=== PATIENT | female | born 1980 | race Caucasian/White ===

== ENCOUNTER 2018-02-21 20:13 | Inpatient (IN) | payer MEDICAID, OTHER ==
[2018-02-21] MEDS ORDERED: Lactated Ringers 1,000 ML IV ONE (20:43)
--- NOTE | 2018-02-21 21:04 | EDM.PDOC ---
<Marie Hickman - Last Filed: 02/21/18 23:20> ED HPI GENERAL MEDICAL PROBLEM - General Chief Complaint: Abdominal Pain Stated Complaint: PAST RNY PATIENT Time Seen by Provider: 02/21/18 20:24 Source of Information: Reports: Patient History Limitations: Reports: No Limitations - History of Present Illness INITIAL COMMENTS - FREE TEXT/NARRATIVE: Pt had sudden onset of abdominal pain today. Patient had pain after eating her lunch at approx 12:00. The pt then had an Emisis of her lunch at approx 230. Pt states had a bowel movement about 5pm but does not have any feeling or urge to have a bowel movement. Pt states pain and nausea continued. The pain was not the same but similar to previous bowel obstructions. 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 Denies: Shortness of Breath Cardiovascular: Reports: No Symptoms. Denies: Chest Pain Endocrine: Reports: No Symptoms GI/Abdominal: Reports: Abdominal Pain, Nausea, Vomiting : Reports: No Symptoms Musculoskeletal: Reports: No Symptoms Skin: Reports: No Symptoms Neurological: Reports: No Symptoms Psychiatric: Reports: No Symptoms Hematologic/Lymphatic: Reports: No Symptoms Immunologic: Reports: No Symptoms ED EXAM, GENERAL - Physical Exam Exam: See Below Free Text/Narrative:: 38 y/o female presents with sudden onset of abd pain. Pt abd soft yet tender to touch greater over the upper right quadrant. Bowel sounds absent to minimal. Abdomen is not distended some guarding with palpation. LBM 5pm today. Last meal at noon today just prior to symptoms. Pt denies being . Exam Limited By: No Limitations General Appearance: Alert, WD/WN, Anxious Respiratory/Chest: No Respiratory Distress, Lungs Clear, Normal Breath Sounds, No Accessory Muscle Use. No: Decreased Breath Sounds, Crackles, Rales Cardiovascular: Normal Peripheral Pulses, Regular Rate, Rhythm, No Edema, No Gallop, No Murmur GI/Abdominal: Soft, Guarding, Other (absent bowel sounds). No: Non-Tender, No Organomegaly, No Distention Back Exam: Normal Inspection, Full Range of Motion Extremities: Normal Inspection, Normal Range of Motion Neurological: Alert, Oriented, Normal Cognition Psychiatric: Normal Affect, Normal Mood Skin Exam: Warm, Intact Lymphatic: No Adenopathy Course - Vital Signs Text/Narrative:: Pt received fluids in route as well as IV zofran and Fentanyl for nausea and pain. Currently obtaining labs CBC, CMP Creatinine Mg, CT ABD/Pelvis with iv contrast. Additional 1 Ltr bolus to be given over 1 hour Plan/Assessment Abd pain - CT does not show obstruction - ventral hernia in upper abdomen on CT - possible gallstones Consult Surgery -Discussion with Dr. Benoit regarding findings -Admit to hospitalist with Dr. Benoit to follow in am -Obtain US of gallbladder in am Consult Hospitalist -Admit as inpatient 2SS Last Recorded V/S: Last Vital Signs Temp 36.9 C 02/21/18 20:21 Pulse 75 02/21/18 20:21 Resp 16 02/21/18 20:21 BP 156/94 H 02/21/18 20:21 Pulse Ox 99 02/21/18 20:21 - Orders/Labs/Meds Orders: Active Orders 24 hr Category Date Time Status Patient Status [ADT] Routine ADT 02/22/18 00:16 Active Ambulate [RC] QID Care 02/22/18 00:16 Active Communication Order [RC] STAT Care 02/22/18 00:16 Active Intake and Output [RC] QSHIFT Care 02/22/18 00:16 Active Notify Provider Vital Signs [RC] ASDIRECTED Care 02/22/18 00:16 Active Notify Provider [RC] PRN Care 02/22/18 00:16 Active Oxygen Therapy [RC] PRN Care 02/22/18 00:16 Active 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 [RC] PER UNIT ROUTINE Care 02/22/18 00:16 Active Pulse Oximetry [RC] CONTINUOUS Care 02/22/18 00:16 Active RT Aerosol Therapy [RC] ASDIRECTED Care 02/22/18 00:16 Active Up ad [place] [RC] ASDIRECTED Care 02/22/18 00:16 Active VTE/DVT Education [RC] Per Unit Routine Care 02/22/18 00:16 Active Vital Signs [RC] Q4H Care 02/22/18 00:16 Active Nothing per Oral After Midnight Diet [DIET] Diet 02/22/18 Breakfast Active Abdomen Comp [US] Timed Exams 02/22/18 07:00 Ordered Abdomen Pelvis w Cont [CT] Stat Exams 02/21/18 20:48 Taken BASIC METABOLIC PANEL,BMP [CHEM] AM Lab 02/22/18 05:11 Ordered CBC WITH AUTO DIFF [HEME] AM Lab 02/22/18 05:11 Ordered HCG QUALITATIVE,URINE [URCHEM] Urgent Lab 02/22/18 00:16 Ordered Albuterol [Proventil Neb Soln] Med 02/22/18 00:16 Active 2.5 mg NEB Q4H PRN Bisacodyl [Dulcolax] Med 02/22/18 00:16 Active 5 mg PO DAILY PRN Docusate Sodium [Colace] Med 02/22/18 00:16 Active 100 mg PO BID PRN LORazepam [Ativan] Med 02/22/18 00:16 Active 1 mg IV Q6H PRN Lactated Ringers [Ringers, Lactated] 1,000 ml Med 02/22/18 00:16 Active IV ASDIRECTED Naloxone [Narcan] Med 02/22/18 00:16 Active 0.4 mg IVPUSH Q2M PRN Ondansetron [Zofran ODT] Med 02/22/18 00:16 Active 4 mg PO Q6H PRN Ondansetron [Zofran] Med 02/22/18 00:16 Active 4 mg IV Q4H PRN Pantoprazole [ProTONIX IV] Med 02/22/18 09:00 Active 40 mg IV DAILY fentaNYL/Normal Saline [fentaNYL in NS 20 MCG/ML 30 ML Med 02/22/18 00:16 Active 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[employer] 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] See Protocol IV ASDIRECTED PRN Medication Discontinuation Instructions [OM.PC] Stat Oth 02/22/18 00:16 Ordered Resuscitation Status Routine Resus Stat 02/21/18 23:17 Ordered Medication Orders Albuterol (Proventil Neb Soln) 2.5 mg NEB Q4H PRN PRN Reason: Shortness Of Breath/wheezing Bisacodyl (Dulcolax) 5 mg PO DAILY PRN PRN Reason: Constipation Docusate Sodium (Colace) 100 mg PO BID PRN PRN Reason: Constipation Fentanyl Citrate (Fentanyl In Ns 20 Mcg/Ml 30 Ml Electrode [employer]) 0 mcg IV ASDIRECTED PRN; Protocol PRN Reason: Pain Last Admin: 02/22/18 00:51 Dose: 600 mcg Lactated Ringer's (Ringers, Lactated) 1,000 mls @ 125 mls/hr IV ASDIRECTED [facility] Last Admin: 02/22/18 00:51 Dose: 125 mls/hr Lorazepam (Ativan) 1 mg IV Q6H PRN PRN Reason: Nausea/Vomiting Naloxone HCl (Narcan) 0.4 mg IVPUSH Q2M PRN PRN Reason: Respiratory Distress Ondansetron HCl (Zofran Odt) 4 mg PO Q6H PRN PRN Reason: Nausea able to take PO Ondansetron HCl (Zofran) 4 mg IV Q4H PRN PRN Reason: Nausea/Vomiting Last Admin: 02/22/18 00:50 Dose: 4 mg Pantoprazole Sodium (Protonix Iv) 40 mg IV DAILY [facility] Labs: Laboratory Tests 02/21/18 02/21/18 Range/Units 20:41 20:41 WBC 8.4 (4.5-11.0) K/uL RBC 3.97 (3.30-5.50) M/uL Hgb 11.7 L (12.0-15.0) g/dL Hct 35.5 L (36.0-48.0) % MCV 89 (80-98) fL MCH 30 (27-31) pg MCHC 33 (32-36) % Plt Count 350 (150-400) K/uL Neut % (Auto) 84 H (36-66) % Lymph % (Auto) 8 L (24-44) % [place] % (Auto) 8 H (2-6) % Eos % (Auto) 0 L (2-4) % Baso % (Auto) 1 (0-1) % Sodium 139 L (140-148) mmol/L Potassium 3.6 (3.6-5.2) mmol/L Chloride 105 (100-108) mmol/L Carbon Dioxide 23 (21-32) mmol/L Anion Gap 14.6 H (5.0-14.0) mmol/L BUN 9 (7-18) mg/dL Creatinine 0.7 (0.6-1.0) mg/dL Est Cr Clr Drug Dosing 107.77 mL/min Estimated GFR (MDRD) > 60 (>60) Glucose 114 H (74-106) mg/dL Calcium 8.8 (8.5-10.1) mg/dL Magnesium 1.6 L (1.8-2.4) mg/dL Total Bilirubin 0.6 (0.2-1.0) mg/dL AST 35 (15-37) U/L ALT 27 (12-78) U/L Alkaline Phosphatase 78 (46-116) U/L Creatine Kinase 128 (26-192) U/L Total Protein 7.3 (6.4-8.2) g/dL Albumin 3.2 L (3.4-5.0) g/dL Globulin 4.1 H (2.3-3.5) g/dL Albumin/Globulin Ratio 0.8 L (1.2-2.2) Meds: Medications Generic Name Dose Route Start Last Admin Trade Name Freq PRN Reason Stop Dose Admin Albuterol 2.5 mg 02/22/18 00:16 Proventil Neb Soln NEB Q4H PRN Shortness Of Breath/wheezing Bisacodyl 5 mg 02/22/18 00:16 Dulcolax PO DAILY PRN Constipation Docusate Sodium 100 mg 02/22/18 00:16 Colace PO BID PRN Constipation Fentanyl Citrate 0 mcg 02/22/18 00:16 02/22/18 00:51 Fentanyl In Ns 20 Mcg/Ml 30 Ml Electrode [employer] IV 600 mcg ASDIRECTED PRN Administration Pain Protocol Lactated Ringer's 1,000 mls @ 125 mls/hr 02/22/18 00:16 02/22/18 00:51 Ringers, Lactated IV 125 mls/hr ASDIRECTED [place] Administration Lorazepam 1 mg 02/22/18 00:16 Ativan IV Q6H PRN Nausea/Vomiting Naloxone HCl 0.4 mg 02/22/18 00:16 Narcan IVPUSH Q2M PRN Respiratory Distress Ondansetron HCl 4 mg 02/22/18 00:16 Zofran Odt PO Q6H PRN Nausea able to take PO Ondansetron HCl 4 mg 02/22/18 00:16 02/22/18 00:50 Zofran IV 4 mg Q4H PRN Administration Nausea/Vomiting Pantoprazole Sodium 40 mg 02/22/18 09:00 Protonix Iv IV DAILY [facility] Discontinued Medications Generic Name Dose Route Start Last Admin Trade Name Freq PRN Reason Stop Dose Admin Hydromorphone HCl 1 mg 02/21/18 21:19 02/21/18 21:25 Dilaudid IVPUSH 02/21/18 21:20 1 mg ONETIME ONE Administration Lactated Ringer's 1,000 mls @ 1,000 mls/hr 02/21/18 20:43 02/21/18 20:57 Ringers, Lactated IV 02/21/18 21:42 1,000 mls/hr BOLUS ONE Administration Sodium Chloride 80 mls @ 3 mls/sec 02/21/18 21:15 02/21/18 21:36 Normal Saline IV 3 mls/sec ASDIRECTED [place] Administration Iopamidol 140 ml 02/21/18 21:15 02/21/18 21:36 Isovue-300 (61%) IV 140 ml . DIRECTED [facility] Administration Sodium Chloride 10 ml 02/21/18 21:05 02/21/18 21:36 Saline Flush FLUSH 10 ml ASDIRECTED PRN Administration Keep Vein Open Departure - Departure Time of Disposition: 11:00 Disposition: Admitted As Inpatient 64 Condition: Fair Clinical Impression: Abdominal pain Qualifiers: Abdominal location: generalized Qualified Code(s): R10.84 - Generalized abdominal pain - Discharge Information Referrals: Mikhail Benoit MD [Primary Care Provider] - Natalie Bey NP [Nurse Practitioner] - Forms: ED Department Discharge Care Plan Goals: admit to Hospitalist services with general surgery to see in am <Arash Newsome - Last Filed: 02/22/18 01:09> Course - Re-Assessments/Exams Free Text/Narrative Re-Assessment/Exam: 02/22/18 01:07 patient seen by myself on arrival History of small bowel obstruction, last was 8 years ago, has had at least 2 abdominal procedures for obstruction. Initial gastric bypass done in 2001. onset of symptoms at 1 p.m. at work, didn't stay most of her shift and went home , had one episode of vomiting at work which helped improve her symptoms. In the evening the pain was like a bear so she finally was going to come into the hospital. She felt too sick to have her drive so EMS was called, she had some bilious emesis en route treated with ondansetron 4 mg twice in her abdominal pain was treated with fentanyl 50 g 3 times and then 25 mg for a total of 175 g with improvement Examination shows a soft abdomen nondistended but decreased bowel sounds mild tenderness in the epigastric area abdominal pain without acute abdomen Labs ordered Reviewed by student CTof the abdomen was negative for blockage Transferred to admission with Dr. Benoit
[2018-02-21] MEDS ORDERED: Sodium Chloride 0.9% 10 ML Syringe FLUSH PRN (21:05)
[2018-02-21] MEDS ORDERED: Iopamidol 612 MG/ML 150 ML Bottle IV SCH (21:15)
[2018-02-21] MEDS ORDERED: Sodium Chloride 0.9% 80 ML IV SCH (21:15)
[2018-02-21] MEDS ORDERED: HYDROmorphone 1 MG/ML Syringe IVPUSH ONE (21:19)
--- NOTE | 2018-02-21 23:39 | PCM.HP ---
H&P History of Present Illness - General Date of Service: 02/21/18 Admit Problem/Dx: Admission Diagnosis/Problem Admission Diagnosis/Problem Abdominal pain Source of Information: Patient, Family () History Limitations: Reports: No Limitations - History of Present Illness Initial Comments - Free Text/Narative: Abdominal pain; this is a 38 year old female present to ER via Ambulance. She reports today ate at noon, then had intense pain at 1 pm, followed by vomiting. She continued to have cyclic waves of abdominal pain that radiates to spine and upper back. abdominal pain mostly in upper right quadrant. Past Surgeries; gastric bypass RNY 2000. hx of 6 abdominal surgeries for hernia repair, sbo, last surgery 2009. Onset of Symptoms: Reports: Sudden Symptom Onset Date: 02/21/18 Symptom Onset Time: 13:00 Duration of Symptoms: Reports: Hour(s):, Waxing/Waning Location: Reports: Abdomen, Radiates to (spine and upper back) Quality: Reports: Sharp, Stabbing Severity: Severe Improves with: Reports: None Worsens with: Reports: None Associated Symptoms: Reports: Loss of Appetite, Nausea/Vomiting Middle Abdomen Pain Score (Numeric/FACES): 2 - Related Data Allergies/Adverse Reactions: Allergies Allergy/AdvReac Type Severity Reaction Status Date / Time No Known Allergies Allergy Verified 02/21/18 20:46 Home Medications: Home Meds NK [No Known Home Meds] 02/21/18 [History] Past Medical History Gastrointestinal History: Reports: Bowel Obstruction 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: - Infectious Disease History Infectious Disease History: Reports: Chicken Pox - Past Surgical History GI Surgical History: Reports: Bariatric Procedure, Hernia Repair/Other, Small Bowel Social & Family History - Tobacco Use Smoking Status *Q: Current Every Day Smoker Years of Tobacco use: 24 Packs/Tins Daily: 0.5 - Caffeine Use Caffeine Use: Reports: Coffee - Recreational Drug Use Recreational Drug Use: No - Living Situation & Occupation Living situation: Reports: , with Family Occupation: Employed (lives with family in [facility]) H&P Review of Systems - Review of Systems: Review Of Systems: See Below General: Reports: No Symptoms, Other (pain controlled with IV narcotics) HEENT: Reports: No Symptoms Pulmonary: Reports: No Symptoms Cardiovascular: Reports: No Symptoms Gastrointestinal: Reports: Abdominal Pain, Nausea, Vomiting Genitourinary: Reports: No Symptoms Musculoskeletal: Reports: Back Pain Skin: Reports: No Symptoms Psychiatric: Reports: No Symptoms Neurological: Reports: No Symptoms Hematologic/Lymphatic: Reports: No Symptoms Immunologic: Reports: No Symptoms Exam - Exam Exam: See Below - Vital Signs Vital Signs: Last Vital Signs Temp 36.9 C 02/21/18 20:21 Pulse 75 02/21/18 20:21 Resp 16 02/21/18 20:21 BP 156/94 H 02/21/18 20:21 Pulse Ox 99 02/21/18 20:21 Weight: 93.416 kg - Exam General: Alert, Oriented, Cooperative, Sedated HEENT: PERRLA, Conjunctiva Clear, EACs Clear, EOMI, Hearing Intact, Mucosa Moist & [place], Nares Patent, Normal Nasal Septum, Posterior Pharynx Clear, Pupils Equal, Pupils Reactive, TMs Clear Neck: Supple, Trachea Midline Lungs: Clear to Auscultation, Normal Respiratory Effort Cardiovascular: Regular Rate, Regular Rhythm, Normal S1, Normal S2 GI/Abdominal Exam: Soft, Distended, Tender (generalized), Abnormal Bowel Sounds (hypoactive bowel sounds) (Female) Exam: Deferred Rectal (Female) Exam: Deferred Back Exam: Normal Inspection, Full Range of Motion Extremities: Normal Inspection, Normal Range of Motion, Non-Tender, No Pedal Edema, Normal Capillary Refill Skin: Warm, Dry, Intact Neurological: Reflexes Equal Bilateral, Strength Equal Bilateral Neuro Extensive - Mental Status: Alert, Oriented x3, Normal Mood/Affect, Normal Cognition, Memory Intact Neuro Extensive - Motor, Sensory, Reflexes: CN II-XII Intact Psychiatric: Alert, Normal Affect, Normal Mood - Patient Data Lab Results Last 24 hrs: Laboratory Results - last 24 hr 02/21/18 02/21/18 Range/Units 20:41 20:41 WBC 8.4 (4.5-11.0) K/uL RBC 3.97 (3.30-5.50) M/uL Hgb 11.7 L (12.0-15.0) g/dL Hct 35.5 L (36.0-48.0) % MCV 89 (80-98) fL MCH 30 (27-31) pg MCHC 33 (32-36) % Plt Count 350 (150-400) K/uL Neut % (Auto) 84 H (36-66) % Lymph % (Auto) 8 L (24-44) % [place] % (Auto) 8 H (2-6) % Eos % (Auto) 0 L (2-4) % Baso % (Auto) 1 (0-1) % Sodium 139 L (140-148) mmol/L Potassium 3.6 (3.6-5.2) mmol/L Chloride 105 (100-108) mmol/L Carbon Dioxide 23 (21-32) mmol/L Anion Gap 14.6 H (5.0-14.0) mmol/L BUN 9 (7-18) mg/dL Creatinine 0.7 (0.6-1.0) mg/dL Est Cr Clr Drug Dosing 107.77 mL/min Estimated GFR (MDRD) > 60 (>60) Glucose 114 H (74-106) mg/dL Calcium 8.8 (8.5-10.1) mg/dL Magnesium 1.6 L (1.8-2.4) mg/dL Total Bilirubin 0.6 (0.2-1.0) mg/dL AST 35 (15-37) U/L ALT 27 (12-78) U/L Alkaline Phosphatase 78 (46-116) U/L Creatine Kinase 128 (26-192) U/L Total Protein 7.3 (6.4-8.2) g/dL Albumin 3.2 L (3.4-5.0) g/dL Globulin 4.1 H (2.3-3.5) g/dL Albumin/Globulin Ratio 0.8 L (1.2-2.2) Result Diagrams: 02/21/18 20:41 02/21/18 20:41 - Problem List (1) Gallstones SNOMED Code(s): 812833130 ICD Code: K80.20 - CALCULUS OF GALLBLADDER W/O CHOLECYSTITIS W/O OBSTRUCTION Status: Acute Priority: High Current Visit: Yes (2) Abdominal pain SNOMED Code(s): 80007335 ICD Code: R10.9 - UNSPECIFIED ABDOMINAL PAIN Status: Acute Priority: High Current Visit: Yes Qualifiers: Abdominal location: generalized Qualified Code(s): R10.84 - Generalized abdominal pain Problem List Initiated/Reviewed/Updated: Yes Orders Last 24hrs: Active Orders 24 hr Category Date Time Status Patient Status Manage Transfer [TRANSFER] Routine ADT 02/21/18 23:15 Active Abdomen Pelvis w Cont [CT] Stat Exams 02/21/18 20:48 Taken Iopamidol [Isovue-300 (61%)] Med 02/21/18 21:15 Active 140 ml IV . DIRECTED Sodium Chloride 0.9% [Normal Saline] 80 ml Med 02/21/18 21:15 Active IV ASDIRECTED Sodium Chloride 0.9% [Saline Flush] Med 02/21/18 21:05 Active 10 ml FLUSH ASDIRECTED PRN Resuscitation Status Routine Resus Stat 02/21/18 23:17 Ordered Medication Orders Sodium Chloride (Normal Saline) 80 mls @ 3 mls/sec IV ASDIRECTED [facility] Last Admin: 02/21/18 21:36 Dose: 3 mls/sec Iopamidol (Isovue-300 (61%)) 140 ml IV . DIRECTED [facility] Last Admin: 02/21/18 21:36 Dose: 140 ml Sodium Chloride (Saline Flush) 10 ml FLUSH ASDIRECTED PRN PRN Reason: Keep Vein Open Last Admin: 02/21/18 21:36 Dose: 10 ml Assessment/Plan Comment:: ASSESSMENT AND PLAN Abdominal pain; this is a 38 year old female present to ER via Ambulance. She reports today ate at noon, then had intense pain at 1 pm, followed by vomiting. She continued to have cyclic waves of abdominal pain that radiates to spine and upper back. abdominal pain mostly in upper right quadrant. Past Surgeries; gastric bypass RNY 2000. hx of 6 abdominal surgeries for hernia repair, sbo, last surgery 2009. ABDOMINAL PAIN-associated with nausea and vomiting. CT scan of the abdomen obtained today shows lungs clear, liver, spleen, pancreas, adrenal glands and kidneys are within normal. Gallstones. no biliary dilation. gastric bypass changes. mild small bowel dilation to the level of the jejunostomy. mildly fluid -filled distal small bowel . no specific findings for small bowel obstruction. there is a ventral hernia in the upper abdomen containing a segment of transverse colon without evidence for obstruction. trace amount of fluid within the pelvis, 2 cm left ovarian cyst. no worrisome bone lesion. Impression: gastric bypass. mildly fluid-filled dilated proximal small bowel is likely postoperative. no specific findings for bowel obstructions. Ventral hernia containing transverse colon, without evidence for obstruction. 2 cm left ovarian cysts. trace free fluid in the the pelvis.. 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 -abdominal ultrasound in a.m. -Consult Dr. Benoit, he will see in am MAINTENANCE ISSUES -DVT prophylaxis; ambulation -GI prophylaxis; Protonix 40 mg IV daily -Nunes catheter; not indicated -Nutrition; clear liquids until 0400, then keep NPO for Surgical Consult -Nicotine dependence; declines nicotine patch CODE STATUS-FULL CODE ADMISSION STATUS-patient will be admitted to inpatient status, expect at least a 2 night hospital stay for evaluation and management of problems as outlined above. At the time of this admission I do not reasonably expected evaluation and management of this problem will require more than a 96 hour hospital stay. DISPOSITION-anticipate discharge to home after the hospital stay. PRIMARY CARE PROVIDER-Dr. Mikhail Benoit Hospitalist- Attending Surgeon - Dr. Mikhail Benoit
[2018-02-22] MEDS ORDERED: Naloxone 0.4 MG/ML SDV IVPUSH PRN (00:16)
[2018-02-22] MEDS ORDERED: Bisacodyl 5 MG Tab PO PRN (00:16)
[2018-02-22] MEDS ORDERED: Albuterol 0.083% 2.5 MG/3 ML Neb Soln NEB PRN (00:16)
[2018-02-22] MEDS ORDERED: Docusate Sodium 100 MG Cap PO PRN (00:16)
[2018-02-22] MEDS ORDERED: Ondansetron 4 MG Tab.DIS PO PRN (00:16)
[2018-02-22] MEDS: Ondansetron 4 MG/2 ML SDV IV PRN ×2 (00:50→05:43)
[2018-02-22] MEDS: Lactated Ringers 1,000 ML IV SCH ×2 (00:51→08:42)
[2018-02-22] MEDS: fentaNYL/Normal Saline 600 MCG/30 ML PCA Vial IV PRN ×3 (00:51→19:00)
[2018-02-22] MEDS ORDERED: LORazepam 2 MG/ML SDV ONE (01:38)
[2018-02-22] MEDS: LORazepam 2 MG/ML SDV IV PRN ×2 (01:41→08:09)
[2018-02-22] MEDS ORDERED: Ondansetron 4 MG/2 ML SDV ONE ×2 (05:36→09:25)
[2018-02-22] MEDS ORDERED: fentaNYL 250 MCG/5 ML SDV ONE ×3 (07:24→14:46)
[2018-02-22] MEDS ORDERED: Non-Formulary Medication 1 Each SCH (08:00)
[2018-02-22] MEDS ORDERED: Ketamine 500 MG/5 ML MDV IV SCH (08:00)
[2018-02-22] MEDS: Potassium Chloride 20 MEQ in Premix Bag 1 BAG IV SCH ×2 (08:44→10:49)
[2018-02-22] MEDS ORDERED: Propofol 200 MG/20 ML SDV ONE (09:25)
[2018-02-22] MEDS ORDERED: Succinylcholine 200 MG/10 ML MDV ONE (09:25)
[2018-02-22] MEDS ORDERED: Dexamethasone 4 MG/ML SDV ONE (09:25)
[2018-02-22] MEDS ORDERED: Glycopyrrolate 0.2 MG/ML 5 ML MDV ONE (09:25)
[2018-02-22] MEDS ORDERED: Neostigmine Methylsulfate 1 MG/ML 5 ML Syringe ONE (09:25)
[2018-02-22] MEDS ORDERED: Rocuronium 50 MG/5 ML Vial ONE ×2 (09:25→13:57)
[2018-02-22] MEDS: Pantoprazole 40 MG Vial IV SCH (10:42)
--- NOTE | 2018-02-22 10:48 | PN ---
DATE OF SERVICE: 02/22/2018 SUBJECTIVE: Emma presented to the emergency room by ambulance with sudden onset of mid epigastric abdominal pain that radiated to the right, then the left upper quadrant. She states she ate lunch and ended up making herself vomit because of the increase in abdominal pain. The pain would be episodic and would radiate in her upper abdomen, mainly to the right and straight through to her back. The pain gradually increased in intensity, associated with nausea and vomiting. She reports the pain as sharp, stabbing, twisting like she had when she had a bowel obstruction in 2007. Home medication, a liquid multivitamin. PAST MEDICAL HISTORY: States she has had 6 small bowel obstruction repairs and Isaura-en-Y gastric bypass surgery in 2000 or 2001. Her consult weight was 330 pounds, her lowest weight was 152, and she stabilized at around 205. HOME MEDICATIONS: Takes no prescription home meds. SOCIAL HISTORY: . 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 Children, 1 son, age 10. Protein intake 60 g. Fluids, 64 ounces of water per day. Smoking history, smokes 4 to 5 cigarettes a day. Alcohol, beer and wine on the weekends. No carbonation or caffeine. REVIEW OF SYSTEMS: CONSTITUTIONAL: Denies any fever, chills, night sweats, or fatigue. HEENT: No headache or dizziness. LUNGS: No shortness of breath. CHEST: No chest pain, fast or irregular heartbeat. ABDOMEN: No dysphagia, diarrhea, constipation, red or black stools. : No UTI signs or symptoms. MUSCULOSKELETAL: No joint pain. SKIN: No rash. PSYCHIATRIC: Negative for any depression, anxiety, or insomnia. NEURO: Denies any headaches, dizziness, or loss of coordination. HEMATOLOGIC OR LYMPHATIC: Reports no anemia. Unsure when she has had her last bariatric followup lab tests done. FAMILY HISTORY: Noncontributory. PHYSICAL EXAMINATION: GENERAL: Emma Love is a 38-year-old female. VITAL SIGNS: Height is 5 feet 8.5 inches, weight is 205 pounds, BMI is 30. TPR is 98.4, 59, 16. Blood pressure 118/74. HEENT: Negative. NECK: Supple. HEART: Regular rate and rhythm. LUNGS: Clear. ABDOMEN: Tenderness in the right upper and mid epigastric area. There is some tenderness in the left upper quadrant as well. Ultrasound did reveal multiple stones. Positive Alexander sign, 0.31 gallbladder wall thickness. : Deferred. EXTREMITIES: Without peripheral edema. NEURO: Intact. PSYCHIATRIC: Mood and affect appropriate. ASSESSMENT: 1. Partial small bowel obstruction. 2. Incarcerated incisional ventral hernia. 3. Cholelithiasis. 4. Status post Isaura-en-Y gastric bypass surgery. 5. Unspecified surgical malabsorption. 6. B12 deficiency. 7. Vitamin D deficiency. 8. Nicotine addiction. PLAN: 1. Schedule and have consent signed for diagnostic laparotomy for release of small bowel obstruction, possible small bowel resection and possible lysis of adhesions and repair of incarcerated incisional ventral hernia. General anesthesia. Case to follow, 02/22/2018; Mikhail Benoit M.D. N.p.o. Special instruction; TAP block, lidocaine and ketamine per protocol ordered. 2. Cefoxitin 2 g IV on-call to OR. 3. SCDs. 4. DuoNeb preoperatively. 5. KCl 40 mEq IV now. Check ferritin, B12, folate, B1, and vitamin D. Serum levels on blood already drawn. 6. Call Mikhail Benoit M.D. with results of ultrasound. 7. After preoperative evaluation and discussion of possible risks and possible complications, the patient is cleared for general anesthesia per this exam. Elizabeth Daugherty PA-C /[id number]
--- NOTE | 2018-02-22 11:03 | US ---
Abdomen Comp CLINICAL HISTORY: Right upper quadrant pain COMPARISON: Current CT abdomen. FINDINGS: The liver is free of mass or biliary dilatation. There is normal parenchymal echogenicity. The gallbladder contains multiple mobile gallstones. The common duct measures 3 mm. The pancreas is o bscured. The kidneys have a normal contour with no stones or hydronephrosis.The aorta is not aneurysm al. The inferior vena cava is unremarkable. The spleen has a normal size and shape. IMPRESSION: Cholelithiasis with no biliary dilatation
[2018-02-22] MEDS ORDERED: Albuterol/Ipratropium 3.0-0.5 MG/3 ML Neb Soln NEB ONE (12:30)
[2018-02-22] MEDS ORDERED: Meropenem 500 MG SDV ONE (12:44)
[2018-02-22] MEDS ORDERED: Bupivacaine 0.5%/EPINEPHrine 1:200,000 50 ML MDV ONE (12:52)
[2018-02-22] MEDS ORDERED: Lidocaine 2% 100 MG/5 ML Syringe IVPUSH SCH (13:00)
[2018-02-22] MEDS ORDERED: Ropivacaine 46 ML, Dexamethasone 8 MG, EPINEPHrine 0.4 MG, Sodium Chloride 0.9% 31.6 ML NERVRT SCH ×4 (13:00)
[2018-02-22] MEDS ORDERED: Lidocaine 0.4%/D5W 2 GM/500 ML BAG IV ONE (13:00)
[2018-02-22] MEDS ORDERED: cefOXitin 2 GM in Sodium Chloride 0.9% 50 ML IV ONE (13:00)
[2018-02-22] MEDS ORDERED: Lactated Ringers 1,000 ML ONE (14:00)
[2018-02-22] MEDS ORDERED: Acetaminophen Soln 650 MG/20.3 ML UD Cup PO SCH (17:45)
[2018-02-22] MEDS ORDERED: Metoclopramide 10 MG/2 ML SDV IVPUSH PRN (18:00)
[2018-02-22] MEDS ORDERED: hydrOXYzine HCl 100 MG/2 ML SDV IM PRN (18:00)
[2018-02-22] MEDS ORDERED: Ondansetron 4 MG/2 ML SDV IVPUSH PRN (18:00)
[2018-02-22] MEDS ORDERED: diphenhydrAMINE 50 MG/ML SDV IVPUSH PRN (18:00)
[2018-02-22] MEDS ORDERED: Labetalol 20 MG/4 ML Syringe IVPUSH PRN (18:00)
[2018-02-22] MEDS ORDERED: MVI, Adult with Vitamin K 10 ML, Chromium/Copper/Mang/Selen/Zn 1 ML, Thiamine 200 MG in... IV SCH ×4 (18:00)
[2018-02-22] MEDS ORDERED: SCOPOLAMINE PATCH CHECK TOP SCH (18:00)
[2018-02-22] MEDS: cefOXitin 2 GM in Sodium Chloride 0.9% 50 ML IV SCH ×2 (18:38→23:36)
[2018-02-22] MEDS: Acetaminophen Soln 650 MG/20.3 ML UD Cup PO SCH ×2 (18:43→23:18)
[2018-02-22] MEDS: Heparin Sodium 5,000 Units/ML Vial SUBCUT SCH (19:05)
[2018-02-22] MEDS: Gabapentin 300 MG Cap PO SCH (20:50)
[2018-02-22] MEDS: Dextrose 5%-Lactated Ringers 1,000 ML IV SCH (23:40)
[2018-02-23] MEDS ORDERED: Iohexol 647 MG/ML 50 ML SDV PO STA (01:18)
[2018-02-23] MEDS: Dextrose 5%-Lactated Ringers 1,000 ML IV SCH ×2 (05:09→11:57)
[2018-02-23] MEDS: Acetaminophen Soln 650 MG/20.3 ML UD Cup PO SCH ×3 (05:21→17:45)
[2018-02-23] MEDS: cefOXitin 2 GM in Sodium Chloride 0.9% 50 ML IV SCH ×3 (05:39→18:29)
[2018-02-23] MEDS ORDERED: Ondansetron 4 MG Tab.DIS PO PRN (07:36)
--- NOTE | 2018-02-23 09:09 | CR ---
UGI wo KUB HISTORY: eval R -Y GBP FINDINGS: After administration of oral contrast, upright views were obtained. Post operative changes gastric bypass. Surgical drains in place. No evidence for leak. Contrast passes freely into proximal small bowel loops. IMPRESSION: No evidence for leak or obstruction.
[2018-02-23] MEDS: Gabapentin 300 MG Cap PO SCH ×3 (09:20→20:22)
[2018-02-23] MEDS: Cyanocobalamin (Vitamin B12) 1,000 MCG/ML SDV IM SCH (09:22)
[2018-02-23] MEDS: Heparin Sodium 5,000 Units/ML Vial SUBCUT SCH ×2 (09:22→20:22)
[2018-02-23] MEDS: Celecoxib 200 MG Cap PO SCH (09:23)
[2018-02-23] MEDS: Pantoprazole 40 MG Vial IV SCH (09:26)
[2018-02-23] MEDS: Magnesium Sulfate/Water 2 GM in Premix Bag 1 BAG IV SCH ×3 (09:52→21:57)
[2018-02-23] MEDS: fentaNYL/Normal Saline 600 MCG/30 ML PCA Vial IV PRN (10:52)
--- NOTE | 2018-02-23 13:10 | PCM.PN ---
- General Info Date of Service: 02/23/18 Admission Dx/Problem (Free Text): Abdominal pain. Subjective Update: Patient is POD #1. Her vitals were stable and there were no acute problems overnight. She is up and ambulating, rico is still in place. She is tolerating her current diet and pain is controlled on the current regimen. She has had one bowel movement since yesterday morning. Ferritin infusion will continue today as per protocol. Functional Status: Reports: Pain Controlled, Tolerating Diet, Ambulating, Urinating, Incentive Spirometry - Review of Systems General: Reports: No Symptoms HEENT: Reports: No Symptoms Pulmonary: Reports: No Symptoms Cardiovascular: Reports: No Symptoms Gastrointestinal: Reports: No Symptoms Genitourinary: Reports: No Symptoms Musculoskeletal: Reports: No Symptoms Skin: Reports: No Symptoms Neurological: Reports: No Symptoms Psychiatric: Reports: No Symptoms Systems Review Comment:: Remainder of ROS is negative for any pertinent negatives or positives. - Patient Data Vitals - Most Recent: Last Vital Signs Temp 98.4 F 02/23/18 12:00 Pulse 75 02/23/18 12:00 Resp 18 02/23/18 12:00 BP 146/94 H 02/23/18 12:00 Pulse Ox 96 02/23/18 12:00 Weight - Most Recent: 204 lb 15.984 oz I&O - Last 24 Hours: Intake & Output 02/22/18 02/23/18 02/23/18 22:59 06:59 14:59 Intake Total 245 2760 568 Output Total 905 680 870 Balance -660 2080 -302 Lab Results Last 24 Hours: Laboratory Results - last 24 hr 02/23/18 02/23/18 Range/Units 04:40 04:40 WBC 8.3 (4.5-11.0) K/uL RBC 3.77 (3.30-5.50) M/uL Hgb 11.0 L (12.0-15.0) g/dL Hct 34.3 L (36.0-48.0) % MCV 91 (80-98) fL MCH 29 (27-31) pg MCHC 32 (32-36) % Plt Count 321 (150-400) K/uL Neut % (Auto) 88 H (36-66) % Lymph % (Auto) 7 L (24-44) % [place] % (Auto) 5 (2-6) % Eos % (Auto) 0 L (2-4) % Baso % (Auto) 0 (0-1) % Sodium 136 L (140-148) mmol/L Potassium 4.0 (3.6-5.2) mmol/L Chloride 105 (100-108) mmol/L Carbon Dioxide 26 (21-32) mmol/L Anion Gap 9.0 (5.0-14.0) mmol/L BUN 3 L (7-18) mg/dL Creatinine 0.7 (0.6-1.0) mg/dL Est Cr Clr Drug Dosing 109.72 mL/min Estimated GFR (MDRD) > 60 (>60) Glucose 202 H (74-106) mg/dL Calcium 8.2 L (8.5-10.1) mg/dL Phosphorus 2.7 (2.5-4.9) mg/dL Magnesium 1.6 L (1.8-2.4) mg/dL Total Bilirubin 0.4 (0.2-1.0) mg/dL AST 47 H (15-37) U/L ALT 34 (12-78) U/L Alkaline Phosphatase 62 (46-116) U/L Total Protein 6.4 (6.4-8.2) g/dL Albumin 2.6 L (3.4-5.0) g/dL Globulin 3.8 H (2.3-3.5) g/dL Albumin/Globulin Ratio 0.7 L (1.2-2.2) Med Orders - Current: Current Medications Acetaminophen (Tylenol) 650 mg PO Q6H [facility] Last Admin: 02/23/18 12:27 Dose: 650 mg Celecoxib (Celebrex) 200 mg PO DAILY@0800 [facility] Last Admin: 02/23/18 09:23 Dose: 200 mg Cyanocobalamin (Vitamin B12) 1,000 mcg IM DAILY [facility] Stop: 02/25/18 10:00 Last Admin: 02/23/18 09:22 Dose: 1,000 mcg Diphenhydramine HCl (Benadryl) 25 - 50 mg IVPUSH Q4H PRN PRN Reason: ITCHING Fentanyl Citrate (Fentanyl In Ns 20 Mcg/Ml 30 Ml [facility] Consultant) 0 mcg IV ASDIRECTED PRN; Protocol PRN Reason: Pain Last Admin: 02/23/18 10:52 Dose: 600 mcg Gabapentin (Neurontin) 300 mg PO TID [facility] Last Admin: 02/23/18 09:20 Dose: 300 mg Heparin Sodium (Porcine) (Heparin Sodium) 5,000 units SUBCUT Q12H [facility] Last Admin: 02/23/18 09:22 Dose: 5,000 units Hydroxyzine HCl (Vistaril) 75 - 100 mg IM Q4H PRN PRN Reason: pain Cefoxitin Sodium 2 gm/ Sodium (Chloride) 50 mls @ 100 mls/hr IV Q6H [facility] Stop: 02/23/18 18:59 Last Admin: 02/23/18 12:04 Dose: 100 mls/hr Dextrose/Lactated Ringer's (Dextrose 5%-Lactated Ringers) 1,000 mls @ 100 mls/ hr IV ASDIRECTED [facility] Last Admin: 02/23/18 11:57 Dose: 100 mls/hr Magnesium Sulfate 2 gm/ Premix 50 mls @ 25 mls/hr IV Q6H [facility] Stop: 02/26/18 05:59 Last Admin: 02/23/18 09:52 Dose: 25 mls/hr Multivitamins/Minerals 10 ml/Chromium/Copper/Manganese/Seleni/Zn 1 ml/ Thiamine HCl 200 mg/ Dextrose/Lactated Ringer's 1,013 mls @ 100 mls/hr IV DAILY@1600 [facility] Labetalol HCl (Normodyne) 5 - 15 mg IVPUSH Q1H PRN PRN Reason: SBP over 160 OR DBP over 95 Metoclopramide HCl (Reglan) 10 mg IVPUSH Q6H PRN PRN Reason: NAUSEA NOT CONTROL BY ZOFRAN Naloxone HCl (Narcan) 0.4 mg IVPUSH Q2M PRN PRN Reason: Respiratory Distress Ondansetron HCl (Zofran) 4 mg IVPUSH Q4H PRN PRN Reason: Nausea/Vomiting Ondansetron HCl (Zofran Odt) 4 mg PO Q4H PRN PRN Reason: Nausea/Vomiting Pantoprazole Sodium (Protonix Iv) 40 mg IV DAILY [facility] Last Admin: 02/23/18 09:26 Dose: 40 mg Sodium Chloride (Saline Flush) 10 ml FLUSH ASDIRECTED PRN PRN Reason: Keep Vein Open Last Admin: 02/21/18 21:36 Dose: 10 ml Discontinued Medications Acetaminophen (Tylenol) 650 mg PO Q6H [facility] Last Admin: 02/22/18 19:12 Dose: Not Given Albuterol (Proventil Neb Soln) 2.5 mg NEB Q4H PRN PRN Reason: Shortness Of Breath/wheezing Albuterol/Ipratropium (Duoneb 3.0-0.5 Mg/3 Ml) 3 ml NEB ONETIME ONE Stop: 02/22/18 12:31 Last Admin: 02/22/18 12:45 Dose: 3 ml Bisacodyl (Dulcolax) 5 mg PO DAILY PRN PRN Reason: Constipation Bupivacaine HCl/Epinephrine Bitart (Marcaine 0.5%/Epinephrine 1:200,000) Confirm Administered Dose 50 ml .ROUTE .STK-MED ONE Stop: 02/22/18 12:53 Ropivacaine 46 ml/Dexamethasone 8 mg/Epinephrine HCl 0.4 mg/ Sodium Chloride 31.6 ml 0 ml NERVRT ASDIRECTED [facility] Last Admin: 02/22/18 14:08 Dose: 80 syringe Cyanocobalamin (Vitamin B12) 1,000 mcg IM ONETIME ONE Stop: 02/24/18 09:01 Dexamethasone (Dexamethasone) Confirm Administered Dose 4 mg .ROUTE .STK-MED ONE Stop: 02/22/18 09:26 Docusate Sodium (Colace) 100 mg PO BID PRN PRN Reason: Constipation Fentanyl (Sublimaze) Confirm Administered Dose 250 mcg .ROUTE .STK-MED ONE Stop: 02/22/18 07:25 Fentanyl (Sublimaze) Confirm Administered Dose 250 mcg .ROUTE .STK-MED ONE Stop: 02/22/18 13:58 Fentanyl (Sublimaze) Confirm Administered Dose 250 mcg .ROUTE .STK-MED ONE Stop: 02/22/18 14:47 Glycopyrrolate (Robinul) Confirm Administered Dose 1 mg .ROUTE .STK-MED ONE Stop: 02/22/18 09:26 Hydromorphone HCl (Dilaudid) 1 mg IVPUSH ONETIME ONE Stop: 02/21/18 21:20 Last Admin: 02/21/18 21:25 Dose: 1 mg Lactated Ringer's (Ringers, Lactated) 1,000 mls @ 1,000 mls/hr IV BOLUS ONE Stop: 02/21/18 21:42 Last Admin: 02/21/18 20:57 Dose: 1,000 mls/hr Sodium Chloride (Normal Saline) 80 mls @ 3 mls/sec IV ASDIRECTED [facility] Last Admin: 02/21/18 21:36 Dose: 3 mls/sec Lactated Ringer's (Ringers, Lactated) 1,000 mls @ 125 mls/hr IV ASDIRECTED [facility] Last Admin: 02/22/18 08:42 Dose: 125 mls/hr Cefoxitin Sodium 2 gm/ Sodium (Chloride) 50 mls @ 100 mls/hr IV ONCALL ONE Stop: 02/22/18 13:29 Last Admin: 02/22/18 13:12 Dose: 100 mls/hr Potassium Chloride 20 meq/ (Premix) 100 mls @ 50 mls/hr IV Q2H [facility] Stop: 02/22/18 11:59 Last Admin: 02/22/18 10:49 Dose: 50 mls/hr Lidocaine HCl/Dextrose (Lidocaine 2 Gm/D5w 500 Ml) 2 gm in 500 mls @ 22.5 mls/ hr IV ONETIME ONE; Protocol Stop: 02/23/18 11:13 Last Admin: 02/22/18 16:37 Dose: 1.5 mg/min, 22.5 mls/hr Lactated Ringer's (Ringers, Lactated) Confirm Administered Dose 1,000 mls @ as directed .ROUTE .STK-MED ONE Stop: 02/22/18 14:01 Dextrose/Lactated Ringer's (Dextrose 5%-Lactated Ringers) 1,000 mls @ 200 mls/ hr IV ASDIRECTED [facility] Last Admin: 02/23/18 05:09 Dose: 200 mls/hr Multivitamins/Minerals 10 ml/Chromium/Copper/Manganese/Seleni/Zn 1 ml/ Thiamine HCl 200 mg/ Dextrose/Lactated Ringer's 1,013 mls @ 200 mls/hr IV DAILY@1600 [facility] Last Admin: 02/22/18 18:38 Dose: 200 mls/hr Iohexol (Omnipaque-300) 50 ml PO .ASDIRECTED [facility] Stop: 02/23/18 01:19 Last Admin: 02/23/18 01:33 Dose: 50 ml Iopamidol (Isovue-300 (61%)) 140 ml IV . DIRECTED [facility] Last Admin: 02/21/18 21:36 Dose: 140 ml Ketamine HCl (Ketalar) 32 mg IV BOLUS [facility] Lidocaine HCl (Xylocaine 2%) 100 mg IVPUSH ASDIRECTED [facility] Lorazepam (Ativan) 1 mg IV Q6H PRN PRN Reason: Nausea/Vomiting Last Admin: 02/22/18 08:09 Dose: 1 mg Lorazepam (Ativan) Confirm Administered Dose 2 mg .ROUTE .STK-MED ONE Stop: 02/22/18 01:39 Last Admin: 02/22/18 01:52 Dose: Not Given Meropenem (Merrem) Confirm Administered Dose 500 mg .ROUTE .STK-MED ONE Stop: 02/22/18 12:45 Last Admin: 02/22/18 13:56 Dose: 500 mg Miscellaneous Information (Remove Patch) 1 ea TRDERM ONETIME ONE Stop: 02/24/18 10:01 Neostigmine Methylsulfate (Neostigmine) Confirm Administered Dose 5 mg .ROUTE .STK-MED ONE Stop: 02/22/18 09:26 Non-Formulary Medication (Nf Drug) 0 each .XX ASDIRECTED [facility]; Protocol Scopolamine Patch (Check) 1 each TOP DAILY [facility] Stop: 02/24/18 18:01 Ondansetron HCl (Zofran Odt) 4 mg PO Q6H PRN PRN Reason: Nausea able to take PO Ondansetron HCl (Zofran) 4 mg IV Q4H PRN PRN Reason: Nausea/Vomiting Last Admin: 02/22/18 05:43 Dose: 4 mg Ondansetron HCl (Zofran) Confirm Administered Dose 4 mg .ROUTE .STK-MED ONE Stop: 02/22/18 05:37 Last Admin: 02/22/18 05:42 Dose: Not Given Ondansetron HCl (Zofran) Confirm Administered Dose 4 mg .ROUTE .STK-MED ONE Stop: 02/22/18 09:26 Propofol (Diprivan 20 Ml) Confirm Administered Dose 200 mg .ROUTE .STK-MED ONE Stop: 02/22/18 09:26 Rocuronium [place] (Zemuron) Confirm Administered Dose 50 mg .ROUTE .STK-MED ONE Stop: 02/22/18 09:26 Rocuronium [place] (Zemuron) Confirm Administered Dose 50 mg .ROUTE .STK-MED ONE Stop: 02/22/18 13:58 Succinylcholine Chloride (Quelicin) Confirm Administered Dose 200 mg .ROUTE .STK -MED ONE Stop: 02/22/18 09:26 - Exam General: Alert, Oriented, Cooperative, No Acute Distress HEENT: Pupils Equal, Mucous Membr. Moist/[place] Neck: Supple Lungs: Clear to Auscultation, Normal Respiratory Effort Cardiovascular: Regular Rate, Regular Rhythm GI/Abdominal Exam: Normal Bowel Sounds Extremities: Normal Range of Motion Skin: Warm, Dry, Intact Wound/Incisions: Healing Well, Dressing Dry and Intact, Drainage (From drain, serosangunous ) - Problem List Review Problem List Initiated/Reviewed/Updated: Yes - Assessment Assessment:: Post: 1.Reduction of bowel volvulus and closure of internal hernia. 2.Resection/ Revision of jujuenostomy 3.Repair incarcerated hernia 4.cholecystetomy. - Plan Plan:: 1. Discontinue cardiac monitoring 2. May shower 3. Discontinue urinary catheter 4. Bariatric diet 5. Cyanocobalamin 1,000 mcg IM qd 6. Dextrose 5% LR at 100 MLS/HR IV as directed 7. Ondansetron 4mg po q4h prn for nausea
[2018-02-23] MEDS ORDERED: MVI, Adult with Vitamin K 10 ML, Chromium/Copper/Mang/Selen/Zn 1 ML, Thiamine 200 MG in... IV SCH ×4 (16:00)
[2018-02-24] MEDS: Acetaminophen Soln 650 MG/20.3 ML UD Cup PO SCH ×4 (00:11→18:14)
[2018-02-24] MEDS: Dextrose 5%-Lactated Ringers 1,000 ML IV SCH (04:06)
[2018-02-24] MEDS: Magnesium Sulfate/Water 2 GM in Premix Bag 1 BAG IV SCH ×3 (04:06→16:33)
[2018-02-24] MEDS: Heparin Sodium 5,000 Units/ML Vial SUBCUT SCH ×2 (08:42→19:56)
[2018-02-24] MEDS: Pantoprazole 40 MG Delayed-Release Granules 1 Packet PO SCH (08:42)
[2018-02-24] MEDS: Cyanocobalamin (Vitamin B12) 1,000 MCG/ML SDV IM SCH (08:43)
[2018-02-24] MEDS: Gabapentin 300 MG Cap PO SCH ×3 (08:43→20:59)
[2018-02-24] MEDS: Celecoxib 200 MG Cap PO SCH (08:43)
[2018-02-24] MEDS ORDERED: Cyanocobalamin (Vitamin B12) 1,000 MCG/ML SDV IM ONE (09:00)
[2018-02-24] MEDS: Bisacodyl 5 MG Tab PO SCH ×2 (09:28→20:02)
[2018-02-24] MEDS: oxyCODONE 5 MG Tab PO PRN ×4 (09:51→22:35)
[2018-02-24] MEDS ORDERED: Multivitamins with Iron Tab.Chew PO ONE (13:00)
[2018-02-24] MEDS ORDERED: Multivitamins with Iron Tab.Chew PO SCH (13:00)
[2018-02-25] MEDS: Acetaminophen Soln 650 MG/20.3 ML UD Cup PO SCH ×2 (00:20→06:18)
[2018-02-25] MEDS: oxyCODONE 5 MG Tab PO PRN ×2 (04:41→09:47)
[2018-02-25] MEDS: Celecoxib 200 MG Cap PO SCH (07:40)
[2018-02-25] MEDS: Pantoprazole 40 MG Delayed-Release Granules 1 Packet PO SCH (07:40)
[2018-02-25] MEDS: Heparin Sodium 5,000 Units/ML Vial SUBCUT SCH (07:40)
[2018-02-25] MEDS: Bisacodyl 5 MG Tab PO SCH (09:48)
[2018-02-25] MEDS: Cyanocobalamin (Vitamin B12) 1,000 MCG/ML SDV IM SCH (09:49)
[2018-02-25] MEDS: Gabapentin 300 MG Cap PO SCH (09:49)
--- NOTE | 2018-02-26 13:31 | DISCH ---
FINAL DIAGNOSES: 1. Small bowel obstruction associated with small bowel volvulus and massive distention of jejunojejunostomy. 2. Recurrent incarcerated incisional hernia. 3. Chronic cholecystitis and cholelithiasis. 4. Bariatric surgery status. 5. Iron deficiency status. OPERATIVE PROCEDURES: Done on 02/22: 1. Exploratory laparotomy with reduction of small bowel volvulus, closure of internal hernia. 2. Resection of revision of jejunojejunostomy. 3. Repair of recurrent incarcerated incisional hernia. 4. Cholecystectomy. HOSPITAL COURSE: In summary, this 38-year-old presenting via ambulance with severe abdominal pain. Workup eventually led to the above diagnoses and surgical procedure was undertaken on 02/22. The patient had a previous postoperative ileus requiring hospitalization up to the present. She is presently tolerating oral pain medication, moving her bowels and appeared to be ready for discharge home. Her iron levels were low and she did receive 2 doses of iron gluconate 230 mg while the hospital. She will be discharged home on Percocet 5/325 mg, 1 to 2 tabs q.4 hours p.r.n. pain #50 and resume usual bariatric vitamins and supplements. She will be following up in the clinic on 03/02/18. She will go home with a AJ drain in the incision incision, which will be removed this Monday.
--- NOTE | 2018-02-26 13:46 | PN ---
DATE OF SERVICE: 02/24/2018 The patient has been afebrile with stable vital signs. Still has not moved her bowels yet and is passing very little in the way of flatus. Her abdomen is somewhat distended, but I think we will continue with a diet but limited until her bowels get moving. Will give her Senna Plus along with Dulcolax oral tablets, 2 tablets scheduled b.i.d. We will titrate her oral pain medication today. She does say that she has been able to take oxycodone in the past, even though it is listed as an intolerance on her list. Overall, the patient may be ready for discharge home tomorrow if her postoperative ileus resolves. At this point, she has had quite an extensive procedure with open laparotomy, lysis of quite extensive adhesions, and reduction of small bowel volvulus and closure of internal hernia along with resection and revision of the jejunojejunostomy and repair of incarcerated incisoinal hernia, as well as an open cholecystectomy. Given all this, discharge yesterday or today would appear to not be reasonable, particularly given the fact she has not moved her bowels yet and still has some degree of postop ileus clinically. Mikhail Benoit MD Job #: [id number]
--- NOTE | 2018-03-05 09:41 | OR ---
DATE OF PROCEDURE: 02/22/2018 PREOPERATIVE DIAGNOSES: 1. Partial small bowel obstruction. 2. Recurrent incarcerated incisional hernia. 3. Chronic cholecystitis and cholelithiasis. POSTOPERATIVE DIAGNOSES: 1. Partial small bowel obstruction associated with small bowel volvulus and massive distention of the jejunojejunostomy. 2. Recurrent incarcerated incisional hernia. 3. Chronic cholecystitis and cholelithiasis. OPERATIVE PROCEDURES: Exploratory laparotomy with, 1. Reduction of small bowel volvulus and closure of internal hernia (93709). 2. Revision of jejunojejunostomy (45389). 3. Repair of recurrent incarcerated incisional hernia (40044). 4. Cholecystectomy (98973). ANESTHESIA: General. ASSISTANTS: 1. Elizabeth Daugherty PA-C. 2. SHMUEL Alejandre. INDICATIONS FOR PROCEDURE: This is a 38-year-old, status post previous Isaura-en-Y gastric bypass, presenting with a picture of a small bowel obstruction. After admission, the patient underwent open laparotomy, as a result a portion of the small bowel was quite massively distended. The plan is to proceed with a laparotomy with a release of the small bowel obstruction, possible bowel resection. Potential risks including bleeding, infection, injury to underlying viscera, recurrence of the problem over time as well as possibility of leaks from the GI tract closures and the possibility of cardiopulmonary, septic, or hemorrhagic complications leading to were all gone over and the patient wishes to proceed. DETAILS OF PROCEDURE: The patient was taken to the operating room, placed in a supine position. After general endotracheal anesthesia was induced, bilateral subcostal transverse abdominis plane blocks were placed with continuous ultrasound guidance and injection of standard solution bilaterally. Following this, a Nunes catheter was inserted, and the abdomen was prepped and draped. A midline incision from the xiphoid to just above the level of the umbilicus was made, was carried down through the skin and subcutaneous tissue, on the lower mid portion of the incision, the patient was noted to have a recurrence of the hernia. This occurred above some preexisting mesh portion. This mesh was divided but was carefully walled off during the course of the procedure to prevent any contamination and limit risk of mesh becoming infected. Initial exploration revealed the patient's primary small bowel obstruction pattern was related to a small bowel volvulus with the bowel rotating from a right to left direction through the mesenteric defect of the jejunojejunostomy. Once this was reduced, the patient was noted to have also quite a massive distention of the jejunojejunostomy and this was felt to be relatively poorly functional. Given this, we then revised that with a division of the Isaura limb, immediately flushed the anastomosis and then reconstructing the jejunojejunostomy between the Isaura limb and what had been the common limb roughly 20 cm distal to the original anastomotic site. This would leave only the biliary pancreatic secretions passing through the old site of the jejunojejunostomy which even was if not overly contractile, should function reasonably well. This anastomosis was accomplished with a [id number] enteroenterostomy with an internal firing of the 60 mm Ross load, closed transversely with the purple load, the angles anastomosed in the mesenteric defect approximated with 2-0 silk stitch. Attention was then taken to the cholecystectomy, gallbladder was reflected anterolaterally. There were some adhesions to the gallbladder which were then taken down and the cystohepatic triangle area was dissected out. Once the cystic artery and cystic duct were both well delineated, these were then divided with a LILIA stapler and the gallbladder was dissected off the gallbladder bed using Harmonic scalpel and electrocautery and delivered from the field, containing multiple stones. At this point, no further problems were noted. The new mesh was felt not to be appropriate in this setting, the partially divided old mesh was then closed after changing down the gloves and removing all of the instruments that had been used up to that point. The mesh had also been walled off with meropenem containing soaked gauze. The mesh was then reconnected with running 0 Prolene stitch, and at that point, Mac-Seay drain was placed through the stab wound in the right lateral abdomen, placed across the area of the gallbladder bed. The midline fascia was then approximated with a running #2 Vicryl stitch, which also covered up the pre-existing mesh and closed the new hernia site as well. Of note, the mesenteric defect at the area of the jejunojejunostomy had been closed with a 2-0 silk stitch as well. The subcutaneous tissue was then closed with 2 layers of 3-0 Vicryl stitch deep and carol for the skin. Dressing was applied. The patient was taken to the recovery room in satisfactory condition. Physician rn first assistant, Elizabeth Daugherty, played an essential role in assisting in this case, helping to position the patient, retract structures as needed, as well as suturing and cutting sutures when indicated. Her presence improved patient safety and decreased operative time. Mikhail Benoit MD Job #: [id number]
== END 2018-02-25 11:15 | disposition home or self-care (01) | DRG 330 ==
LOC: JP.ED 20:13 → JP.2SS 02-22 00:16
PROVIDERS: ADMIT Hospitalist; ATTEND Surgery
PROC: 0DSA0ZZ Reposition Jejunum, Open Approach (ICD-10-PCS; principal; 2018-02-22)
PROC: 0DBA0ZZ Excision of Jejunum, Open Approach (ICD-10-PCS; 2018-02-22)
PROC: 0WQF0ZZ Repair Abdominal Wall, Open Approach (ICD-10-PCS; 2018-02-22)
PROC: 0FT40ZZ Resection of Gallbladder, Open Approach (ICD-10-PCS; 2018-02-22)
PROC: 3E0T3BZ Introduction of Anesthetic Agent into Peripheral Nerves and Plexi, Percutaneous Approach (ICD-10-PCS; 2018-02-22)
DX: K56.2 Volvulus (principal); K43.0 Incisional hernia with obstruction, without gangrene; K80.10 Calculus of gallbladder with chronic cholecystitis without obstruction; K91.2 Postsurgical malabsorption, not elsewhere classified; Z98.84 Bariatric surgery status; K63.89 Other specified diseases of intestine; E61.1 Iron deficiency; F17.200 Nicotine dependence, unspecified, uncomplicated; N83.202 Unspecified ovarian cyst, left side; K66.0 Peritoneal adhesions (postprocedural) (postinfection); K56.7 Ileus, unspecified; E53.8 Deficiency of other specified B group vitamins; E55.9 Vitamin D deficiency, unspecified; Z98.0 Intestinal bypass and anastomosis status
CPT/HCPCS: 36415; 74177; 74240; 74240-26; 76700; 76700-26; 80048; 80053; 81025; 82306; 82550; 82607; 82728; 82746; 83735; 84100; 85025; 88304; 94640; 94762; 96361; 96374; 99285-25; A9270-GY; C9113; J0171; J0330; J0694; J1100; J1170; J1644; J2001; J2060; J2185; J2405; J2704; J2710; J2795; J3010; J3411; J3420; J3475; J3480; J7030; J7042; J7050; J7120; J7620; Q9967

== ENCOUNTER 2018-09-10 06:13 | Observation (INO) | payer OTHER ==
[2018-09-10] MEDS ORDERED: Scopolamine 1.5 MG Transdermal Patch TOP SCH (06:15)
[2018-09-10] MEDS ORDERED: Acetaminophen 500 MG Tab PO ONE (06:15)
[2018-09-10] MEDS ORDERED: Meropenem 500 MG SDV ONE (06:38)
[2018-09-10] MEDS ORDERED: Dextrose 5%-Lactated Ringers 1,000 ML IV SCH (07:00)
[2018-09-10] MEDS ORDERED: Bupivacaine 0.5%/EPINEPHrine 1:200,000 50 ML MDV ONE (07:07)
[2018-09-10] MEDS ORDERED: Ondansetron 4 MG/2 ML SDV ONE (07:11)
[2018-09-10] MEDS ORDERED: Propofol 200 MG/20 ML SDV ONE (07:11)
[2018-09-10] MEDS ORDERED: Neostigmine Methylsulfate 1 MG/ML 5 ML Syringe ONE (07:11)
[2018-09-10] MEDS ORDERED: Dexamethasone 4 MG/ML SDV ONE (07:11)
[2018-09-10] MEDS ORDERED: fentaNYL 250 MCG/5 ML SDV ONE (07:11)
[2018-09-10] MEDS ORDERED: Rocuronium 50 MG/5 ML Vial ONE (07:11)
[2018-09-10] MEDS ORDERED: Glycopyrrolate 0.2 MG/ML 5 ML MDV ONE (07:11)
[2018-09-10] MEDS ORDERED: ceFAZolin 2 GM in Premix Bag 1 BAG IV ONE (07:45)
[2018-09-10] MEDS ORDERED: Ropivacaine 46 ML, Dexamethasone 8 MG, EPINEPHrine 0.4 MG, Sodium Chloride 0.9% 31.6 ML NERVRT SCH ×4 (09:00)
[2018-09-10] MEDS ORDERED: Ketamine 500 MG/5 ML MDV IV SCH (09:00)
[2018-09-10] MEDS ORDERED: Ketamine 50 MG in Sodium Chloride 0.9% 49.5 ML IV SCH (09:00)
[2018-09-10] MEDS ORDERED: fentaNYL 100 MCG/2 ML SDV ONE ×2 (10:03→10:40)
[2018-09-10] MEDS ORDERED: Lactated Ringers 1,000 ML ONE (10:41)
[2018-09-10] MEDS ORDERED: Acetaminophen 1,000 MG in Premix Bag 1 BAG IV ONE (11:00)
[2018-09-10] MEDS ORDERED: Naloxone 0.4 MG/ML SDV IV PRN (11:46)
[2018-09-10] MEDS ORDERED: Morphine PF 150 MG/30 ML PCA Syringe IV PRN (11:46)
[2018-09-10] MEDS ORDERED: Ondansetron 4 MG/2 ML SDV IVPUSH PRN (11:48)
[2018-09-10] MEDS ORDERED: hydrOXYzine HCl 100 MG/2 ML SDV IM PRN (11:50)
[2018-09-10] MEDS: Acetaminophen/oxyCODONE 325-5 MG Tab PO PRN ×3 (12:17→21:01)
[2018-09-10] MEDS: Morphine 2 MG/ML Syringe IV PRN ×2 (13:03→15:25)
[2018-09-10] MEDS: ceFAZolin 2 GM in Premix Bag 1 BAG IV SCH ×2 (13:51→22:07)
[2018-09-10] MEDS: Sodium Ferric Gluconate Cmplex 250 MG in Sodium Chloride 0.9% 100 ML IV SCH (15:26)
[2018-09-10] MEDS: Amylase/Lipase/Protease 12,000 Unit Cap.CR PO SCH (16:50)
[2018-09-10] MEDS: hydrOXYzine HCl 25 MG Tab PO PRN (19:19)
[2018-09-10] MEDS: Dextrose 5%-Lactated Ringers 1,000 ML IV SCH (23:35)
[2018-09-11] MEDS: Acetaminophen/oxyCODONE 325-5 MG Tab PO PRN ×3 (01:49→11:05)
[2018-09-11] MEDS: hydrOXYzine HCl 25 MG Tab PO PRN ×2 (04:32→22:04)
[2018-09-11] MEDS: Dextrose 5%-Lactated Ringers 1,000 ML IV SCH (06:18)
[2018-09-11] MEDS: ceFAZolin 2 GM in Premix Bag 1 BAG IV SCH (06:21)
[2018-09-11] MEDS: Amylase/Lipase/Protease 12,000 Unit Cap.CR PO SCH ×3 (07:25→17:48)
[2018-09-11] MEDS ORDERED: Dextrose 5%-Lactated Ringers 1,000 ML IV SCH (08:30)
[2018-09-11] MEDS: SCOPOLAMINE PATCH CHECK TOP SCH (08:38)
[2018-09-11] MEDS: Bisacodyl 5 MG Tab PO SCH ×2 (09:18→21:48)
[2018-09-11] MEDS: Morphine 2 MG/ML Syringe IV PRN ×3 (11:06→18:46)
[2018-09-11] MEDS ORDERED: Ketorolac 60 MG/2 ML SDV IM ONE (14:20)
[2018-09-11] MEDS: Sodium Ferric Gluconate Cmplex 250 MG in Sodium Chloride 0.9% 100 ML IV SCH (14:35)
[2018-09-11] MEDS: Acetaminophen/HYDROcodone 325-5 MG Tab PO PRN ×3 (15:21→23:25)
[2018-09-11] MEDS: Ketorolac 10 MG Tab PO SCH (21:49)
[2018-09-12] MEDS: hydrOXYzine HCl 25 MG Tab PO PRN ×2 (01:59→08:45)
[2018-09-12] MEDS: Ketorolac 10 MG Tab PO SCH ×2 (04:30→10:23)
[2018-09-12] MEDS: Acetaminophen/HYDROcodone 325-5 MG Tab PO PRN ×2 (05:20→10:23)
[2018-09-12] MEDS: Amylase/Lipase/Protease 12,000 Unit Cap.CR PO SCH (07:14)
[2018-09-12] MEDS ORDERED: Psyllium Husk Powder Sugar Free 5.85 GM Packet PO SCH (07:30)
[2018-09-12] MEDS: Bisacodyl 5 MG Tab PO SCH (08:45)
[2018-09-12] MEDS: SCOPOLAMINE PATCH CHECK TOP SCH (10:20)
--- NOTE | 2018-09-12 11:13 | DISCH ---
ADMISSION DIAGNOSES: 1. Recurrent incisional hernia. 2. 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 3. Unspecified surgical malabsorption. 4. B12 deficiency. 5. Dysthymia. 6. Hypothyroidism. DISCHARGE DIAGNOSES: 1. Diagnostic laparoscopy with lysis of adhesions. a. Repair of recurrent incisional hernia with mesh. b. Repair of deserialization of the transverse colon and placement of Vicryl mesh for recurrent incisional hernia with extensive intraabdominal adhesions, focal superficial deserialization of the transverse colon. Date of surgery: 09/10/2018. Surgeon: Mikhail Benoit MD. HISTORY: Emma Love is a 38-year-old female with a recurrent incisional hernia. After preoperative evaluation and discussion of possible risks and possible complications, she wished to proceed with surgical procedure. HOSPITAL COURSE: Emma had her surgery on 09/10/2018. She had no operative complications. On postoperative day #1, she was started with bowel stimulation. She was able to shower and change to oral pain medication. On postoperative day #2, she was able to be discharged to home. Pain was well managed. Activity was good. Vital signs stable. OBJECTIVE: GENERAL: Emma Love is a 38-year-old female. VITAL SIGNS: Height is 5 feet 8.11 inches, weight is 195 pounds. TPR is 98.6, 58, 16, blood pressure 113/65. HEENT: Negative. NECK: Supple. HEART: Regular rate and rhythm. LUNGS: Clear. ABDOMEN: Sutures intact. Pressure dressing, rolled Kerlix over former hernia site. Abdominal binder has been on. EXTREMITIES: Without peripheral edema. DISPOSITION: Discharged to home. CONDITION: Stable and improving. FOLLOWUP APPOINTMENT: Elizabeth Daugherty PA-C, on 09/18/2018 at 10:00 a.m. HOME MEDICATIONS: 1. [place] 5/325 mg 1 to 2 every 4 hours p.r.n. pain, #40. 2. Toradol 10 mg q.6 h. to take with food, #20. 3. Omeprazole 20 mg b.i.d. for 1 month. She is to resume home medication of: 1. Calcium citrate 500 mg b.i.d. 2. Vitamin D3 5000 International Units daily. 3. Creon [id number] one tablet three times a day before meals. 4. B12 1000 mcg sublingual daily. 5. Vitron-C one tablet oral daily. 6. Lactobacillus one tablet 3 times a day. 7. Multivitamin 2 each twice daily. 8. Thiamine. 9. Vitamin B 100 mg oral daily. 10.Wheat dextrin/Benefiber 6 to 8 tablespoons oral daily. 11.Zinc 50 mg oral daily. DIET: Usual diet as tolerated. Drink 8 to 10 glasses of water a day. ACTIVITY: No lifting greater than 10 pounds for 6 weeks. Other activity, walk at least 6 times daily inside your home. Driving: Do not drive while on pain medication. Shower/bathing, may shower. DISCHARGE INSTRUCTIONS: Notify provider if any fever, increased pain, nausea, vomiting. Keep site clean and dry. Wound incision care, wear pressure dressing over hernia site and abdominal binder for 6 weeks and then as tolerated. Use incentive spirometer 10 times every hour while awake for 6 weeks.
--- NOTE | 2018-09-12 13:04 | PN ---
DATE OF SERVICE: 09/11/2018 The patient has been afebrile with stable vital signs. She has not required any WRAPPER COUNTER overnight, but is still fairly uncomfortable. I think we will keep her 1 more day to work on getting pain control. We are going to give her some bowel stimulation. She will likely be ready for discharge home tomorrow. Mikhail Benoit MD /[id number]
--- NOTE | 2018-09-14 08:48 | OR ---
DATE OF PROCEDURE: 09/10/2018 PREOPERATIVE DIAGNOSIS: Recurrent incisional hernia. POSTOPERATIVE DIAGNOSES: 1. Recurrent incarcerated incisional hernia with extensive intraabdominal adhesions. 2. Focal superficial deserosalization of transverse colon during the dissection of the colon away from the hernia site. OPERATIVE PROCEDURES: Diagnostic laparoscopy with lysis of adhesions: 1. Repair of recurrent incarcerated incisional hernia with mesh ([id number]). 2. Repair of area of deserosalization of transverse colon ([id number]). 3. Placement of Vicryl mesh to displace pelvic and abdominal wall from underlying viscera to limit recurrent adhesion formation ([id number]). ANESTHESIA: General. CAR SEAT COVERER: Elizabeth Daughrety PA-C and ROMARIO Shore. INDICATION FOR PROCEDURE: This 38-year-old presenting with recurrence of the previously repaired incisional hernia. Plan is to proceed with a diagnostic laparoscopy, laparotomy if necessary, and repair of the hernia with mesh. Potential risks including bleeding, infection, injury to underlying viscera, problems with mesh becoming infected or the hernia recurring as well as remote possibility of cardiopulmonary, septic, or hemorrhagic complications leading to were discussed, and the patient wishes to proceed. DETAILS OF PROCEDURE: The patient was taken to the operating room, placed in a supine position after general endotracheal anesthesia was induced. A Nunes catheter was inserted, which was removed at the end of the procedure and the abdomen prepped and draped. In the left mid abdomen, a transverse incision was made. The peritoneal cavity entered under direct vision with Optiview trocar, inflated to 15 mmHg pressure with CO2. Initially, 5-mm trocars were placed in the left lower quadrant as well as in the left upper quadrant and at that point bilateral mid abdominal and transversus abdominis plane blocks were placed under direct vision of the needle in the correct plane via laparoscopic vantage point. Eventually, two 5 mm trocars were placed on the right side to allow adequate placement of the fixing screws for the mesh at that point in the procedure. Initially, there was noted to be quite in the way of omental adhesions. The patient did have a fairly significant length of the transverse colon, more or less draped across the area of the hernia. As one dissected this down, for the most part, a nice reeler plane could be established. Once the colon was taken down and was inspected, there was one focal area that was superficially deserosalized. This was by no means close to full-thickness injury and the incision was then repaired with two [id number] stitches of 3-0 Vicryl stitch and then also with fibrin sealant placed at the end of procedure. The hernia site was then mapped out. A Ventralight hernia mesh measuring 20 x 25 cm was selected with the orientation of the mesh to be in the long axis in the midline. Two sutures were placed at the end of the long axis and polypropylene side of the mesh and the mesh was then soaked in antibiotic-containing saline solution. The mesh was then mapped out while the sutures were being pulled up as well as the inflation of the catheter and mesh was placed in intraperitoneal location. The mesh was then oriented such that the polypropylene side would face the abdominal wall, and 2 sutures and inflation catheter were then pulled up through their respective stab wounds. The mesh balloon was then inflated bringing the mesh up against the abdominal wall. This was then circumferentially secured with an outer circumferential layer of absorbable tacking screws and inner layer was also then placed closer to the area of the herniation itself. At that point, no further problems were noted. Some additional irrigation of antibiotics was placed in the abdomen to limit recurrent adhesion formation in the pelvis, abdominal wall, and the newly placed mesh. A 12-inch segment of Vicryl mesh was then also then placed and this was placed underneath the newly placed mesh along the lower abdominal wall and pelvis again to displace viscera from those surfaces. At that point, no further problems noted. The fascia at the 12 mm site was closed with 0 Vicryl stitch and the skin with 4-0 Vicryl skin stitch, dressing was applied. The patient was taken to the recovery room in satisfactory condition. Physician speech assistant, Elizabeth Daugherty, played an essential role in assisting in this case, helping to position the patient, retract structures as needed, as well as suturing and cutting sutures when indicated. Her presence improved the patient's safety and decreased operative time. Mikhail Benoit MD /[id number]
== END 2018-09-12 11:38 | disposition home or self-care (01) ==
LOC: JP.SDS 06:13 → EDSTATUS 07:15 → JP.MS 10:45 → JP.SDSSCHI 10:45 → JP.MS 10:45 → UNDODISIN 09-12 11:38
PROVIDERS: ADMIT Surgery; ATTEND Surgery
DX: K43.2 Incisional hernia without obstruction or gangrene (principal); E03.9 Hypothyroidism, unspecified; F34.1 Dysthymic disorder; E66.3 Overweight; E53.8 Deficiency of other specified B group vitamins; F17.210 Nicotine dependence, cigarettes, uncomplicated; Z68.29 Body mass index [BMI] 29.0-29.9, adult
CPT/HCPCS: 81025; A9270-GY; C1781; J0131; J0171; J0690; J1100; J1885; J2020; J2185; J2270; J2405; J2704; J2710; J2795; J2916; J3010; J3410; J3490; J7030; J7042; J7050; J7120

== ENCOUNTER 2020-05-26 16:57 | Observation (INO) | payer OTHER ==
[2020-05-26] MEDS ORDERED: Ondansetron 4 MG Tab.DIS PO ONE (18:22)
[2020-05-26] MEDS ORDERED: fentaNYL 100 MCG/2 ML SDV IM ONE (18:24)
--- NOTE | 2020-05-26 18:36 | EDM.PDOC ---
<Corazon Montenegro M - Last Filed: 05/26/20 20:20> ED HPI GENERAL MEDICAL PROBLEM - General Chief Complaint: Abdominal Pain Stated Complaint: ABD PAIN Time Seen by Provider: 05/26/20 18:27 Source of Information: Reports: Patient, RN, RN Notes Reviewed, Significant Other History Limitations: Reports: No Limitations - History of Present Illness INITIAL COMMENTS - FREE TEXT/NARRATIVE: Pt here with spouse and presents with increasing Abd pain that radiates to BL flanks since this morning. Rates pain 9/10 and constant. C/o distention, tenderness, and audible bowel sounds. Pt indicates a change in bowel movements. Normal 2-3 BM's in am but today only had 1 BM at 1400 and was forced. Soft formed brown. C/o nausea and low intake of fluid or food. Indicates following diet plan from surgeon. Pt has had multiple abd surgeries and gastric bypass. Prior to leaving for ER, pt had spoke with Dr Benoit's RN (Elizabeth) and was encouraged to come to ER for a CT scan. No fevers, vomiting, chills, night sweats or recent travel or exposure to illness. Onset: Today Onset Date: 05/26/20 Duration: Hour(s):, Constant, Getting Worse Location: Reports: Abdomen (Epigastric and RQ) Quality: Reports: Ache, Pressure Severity: Severe Associated Symptoms: Reports: Loss of Appetite, Nausea/Vomiting, Other (Feels constipated ) Upper Epigastric Pain Score (Numeric/FACES): 9 - Related Data Allergies Allergy/AdvReac Type Severity Reaction Status Date / Time hydromorphone Allergy Disorientat Verified 05/26/20 17:30 ion Home Meds: Home Meds Calcium Cit/Mgox/Vit D3/B6/Min [Calcium Citrate Plus Tablet] 500 mg PO BID 09/07/18 [History] Cholecalciferol (Vitamin D3) [Vitamin D3] 5,000 unit PO DAILY 09/07/18 [History] Creon [id number] 1 tab PO TID 09/07/18 [History] Cyanocobalamin (Vitamin B-12) [Vitamin B-12] 1,000 mcg SL DAILY 09/07/18 [History] Ferrous Fumarate/Vitamin C [Vitron-C] 1 tab PO DAILY 09/07/18 [History] Multivitamin-Min/Iron/FA/Vit K [Multi-Day Plus Minerals Tablet] 2 each PO BID 09/07/18 [History] Vitamin B Complex [B Complex] 1 each PO DAILY 09/07/18 [History] Zinc Gluconate [Zinc] 50 mg PO DAILY 09/07/18 [History] Lactobacillus Acidophilus [Acidophilus] 1 tab PO TID 09/10/18 [History] Thiamine HCl [Vitamin B-1] 100 mg PO DAILY 09/10/18 [History] Wheat Dextrin [Benefiber] 6 - 8 tsp PO DAILY 09/10/18 [History] Past Medical History HEENT History: Reports: Other (See Below) Other HEENT History: wears glasses Gastrointestinal History: Reports: Bowel Obstruction TRAINING 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 DIRECTOR History: Reports: Musculoskeletal History: Reports: Back Pain, Chronic, Fracture, Other (See Below) Other Musculoskeletal History: fractured arm in elementary school Endocrine/Metabolic History: Reports: Other (See Below) Other Endocrine/Metabolic History: "I was on thryroid medicine yrs ago" Hematologic History: Reports: B12 Deficiency, Iron Deficiency - Infectious Disease History Infectious Disease History: Reports: Chicken Pox - Past Surgical History HEENT Surgical History: Reports: Other (See Below) Other HEENT Surgeries/Procedures: wisdom teeth removed GI Surgical History: Reports: Bariatric Procedure, Cholecystectomy, Hernia Repair/Other, Small Bowel Social & Family History - Tobacco Use Smoking Status *Q: Light Tobacco Smoker Years of Tobacco use: 26 Packs/Tins Daily: 0.5 - Caffeine Use Caffeine Use: Reports: None Other Caffeine Use: 3-4 cold coffee per week - Alcohol Use Days Per Week of Alcohol Use: 5 Number of Drinks Per Day: 4 Total Drinks Per Week: 20 - Recreational Drug Use Recreational Drug Use: No - Living Situation & Occupation Living situation: Reports: , with Family Occupation: Employed (lives with family in [facility]) ED ROS GENERAL - Review of Systems Review Of Systems: See Below Constitutional: Reports: Decreased Appetite HEENT: Reports: No Symptoms Respiratory: Reports: No Symptoms Cardiovascular: Reports: No Symptoms Endocrine: Reports: No Symptoms GI/Abdominal: Reports: Abdominal Pain, Decreased Appetite, Distension, Nausea : Reports: No Symptoms Musculoskeletal: Reports: No Symptoms Skin: Reports: No Symptoms Neurological: Reports: No Symptoms Psychiatric: Reports: No Symptoms ED EXAM, GI/ABD - Physical Exam Exam: See Below Exam Limited By: No Limitations General Appearance: Alert, WD/WN Head: Normocephalic Neck: Normal Inspection Respiratory/Chest: No Respiratory Distress, Lungs Clear, Normal Breath Sounds, No Accessory Muscle Use, Chest Non-Tender Cardiovascular: Regular Rate, Rhythm, No Murmur, No Rub GI/Abdominal Exam: Distended, Guarding, Tender, Other (Tender epigasteric, RQ and radiates to BL flanks ) Rectal (Female) Exam: Deferred Extremities: Normal Inspection Neurological: Alert, Oriented Psychiatric: Normal Affect Skin Exam: Warm, Dry, Intact, Normal Color, No Rash Departure - Departure Time of Disposition: 20:21 Disposition: Admitted As Inpatient 64 Condition: Good Clinical Impression: Flank pain, Small bowel obstruction Abdominal pain Qualifiers: Abdominal location: generalized Qualified Code(s): R10.84 - Generalized abdominal pain - Discharge Information *PRESCRIPTION DRUG MONITORING PROGRAM REVIEWED*: Not Applicable *COPY OF PRESCRIPTION DRUG MONITORING REPORT IN PATIENT JOSE: Not Applicable Referrals: PCP,None [Primary Care Provider] - Forms: ED Department Discharge Sepsis Event Note (ED) - Evaluation Sepsis Screening Result: No Definite Risk - Problem List & Annotations (1) Small bowel obstruction SNOMED Code(s): 086628775 Code(s): K56.609 - UNSP INTESTNL OBST, UNSP TO PARTIAL VERSUS COMPLETE OBST Status: Acute Priority: High Current Visit: Yes - Problem List Review Problem List Initiated/Reviewed/Updated: Yes - Assessment/Plan Plan: Call was placed to Dr Benoit regarding Ct scan results. Pt will be admitted and Dr Benoit will follow up on Monday in the afternoon. <OfficerFei - Last Filed: 05/26/20 20:27> ED ROS GENERAL - Review of Systems Reason Not Obtained: Agree with below ED EXAM, GI/ABD - Physical Exam Text/Narrative:: Agree with below Course - Vital Signs Last Recorded V/S: Last Vital Signs Temp 97.5 F 05/26/20 17:29 Pulse 74 05/26/20 17:29 Resp 16 05/26/20 17:29 BP 170/91 H 05/26/20 17:29 Pulse Ox 98 05/26/20 17:29 - Orders/Labs/Meds Orders: Active Orders 24 hr Category Date Time Status Patient Status [ADT] Routine ADT 05/26/20 20:20 Active Communication Order [RC] Per Unit Routine Care 05/26/20 20:23 Active Height and Weight [RC] DAILY Care 05/26/20 20:20 Active Intake and Output [RC] QSHIFT Care 05/26/20 20:21 Active Oxygen Therapy [RC] PRN Care 05/26/20 20:20 Active BIZTALK ADMINISTRATOR Record [RC] Q4H Care 05/26/20 20:23 Active Up ad Holley [RC] ASDIRECTED Care 05/26/20 20:20 Active VTE/DVT Education [RC] Per Unit Routine Care 05/26/20 20:20 Active Vital Signs [RC] PER UNIT ROUTINE Care 05/26/20 20:23 Active Vital Signs [RC] Q4H Care 05/26/20 20:20 Active Nothing per Oral Now Diet [DIET] Diet 05/26/20 Breakfast Active Iopamidol [Isovue-300 (61%)] Med 05/26/20 19:00 Active 100 ml IV . DIRECTED Lactated Ringers [Ringers, Lactated] 1,000 ml Med 05/26/20 20:30 Ordered IV ASDIRECTED Naloxone [Narcan] Med 05/26/20 20:22 Ordered 0.04 mg IVPUSH Q3M PRN Ondansetron [Zofran] Med 05/26/20 20:20 Ordered 4 mg IV Q4H PRN Ondansetron [Zofran] Med 05/26/20 20:22 Ordered 4 mg IVPUSH Q6H PRN Sodium Chloride 0.9% [Normal Saline] 80 ml Med 05/26/20 19:00 Active IV ASDIRECTED diphenhydrAMINE [Benadryl] Med 05/26/20 20:22 Ordered 25 mg IVPUSH Q6H PRN diphenhydrAMINE [Benadryl] Med 05/26/20 20:22 Ordered 25 mg PO Q6H PRN fentaNYL/Normal Saline [fentaNYL in NS 20 MCG/ML 30 ML Med 05/26/20 20:30 Ordered BIZTALK ADMINISTRATOR] 10 mcg IV ASDIRECTED Pulse Oximetry Continuous Monitoring [OM.PC] Routine Oth 05/26/20 20:23 Ordered Resuscitation Status Routine Resus Stat 05/26/20 20:20 Ordered Medication Orders Diphenhydramine HCl (Benadryl) 25 mg IVPUSH Q6H PRN PRN Reason: Itching Diphenhydramine HCl (Benadryl) 25 mg PO Q6H PRN PRN Reason: Itching Fentanyl Citrate (Fentanyl In Ns 20 Mcg/Ml 30 Ml Adventure Challenge Instructor) 10 mcg IV ASDIRECTED [place]; Protocol Sodium Chloride (Normal Saline) 80 mls @ 3 mls/sec IV ASDIRECTED [place] Last Admin: 05/26/20 19:09 Dose: 3 mls/sec Documented by: KRUPAALY Lactated Ringer's (Ringers, Lactated) 1,000 mls @ 125 mls/hr IV ASDIRECTED [place] Iopamidol (Isovue-300 (61%)) 100 ml IV . DIRECTED [place] Last Admin: 05/26/20 19:09 Dose: 100 ml Documented by: WILLIAM Naloxone HCl (Narcan) 0.04 mg IVPUSH Q3M PRN PRN Reason: Respiratory Depression Ondansetron HCl (Zofran) 4 mg IV Q4H PRN PRN Reason: Nausea/Vomiting Ondansetron HCl (Zofran) 4 mg IVPUSH Q6H PRN PRN Reason: Nausea/Vomiting Labs: Laboratory Tests 05/26/20 05/26/20 05/26/20 Range/Units 18:38 18:42 18:55 WBC 5.8 (4.5-11.0) K/uL RBC 4.04 (3.30-5.50) M/uL Hgb 13.6 D (12.0-15.0) g/dL Hct 39.3 (36.0-48.0) % MCV 97 (80-98) fL MCH 34 H (27-31) pg MCHC 35 (32-36) % Plt Count 276 (150-400) K/uL Neut % (Auto) 65 (36-66) % Lymph % (Auto) 23 L (24-44) % [place] % (Auto) 10 H (2-6) % Eos % (Auto) 0 L (2-4) % Baso % (Auto) 1 (0-1) % Sodium (140-148) mmol/L Potassium (3.6-5.2) mmol/L Chloride (100-108) mmol/L Carbon Dioxide (21-32) mmol/L Anion Gap (5.0-14.0) mmol/L BUN (7-18) mg/dL Creatinine (0.6-1.0) mg/dL Est Cr Clr Drug Dosing mL/min Estimated GFR (MDRD) (>60) Glucose (74-106) mg/dL Lactic Acid (0.4-2.0) mmol/L Calcium (8.5-10.1) mg/dL Total Bilirubin (0.2-1.0) mg/dL AST (15-37) U/L ALT (12-78) U/L Alkaline Phosphatase (46-116) U/L Total Protein (6.4-8.2) g/dL Albumin (3.4-5.0) g/dL Globulin (2.3-3.5) g/dL Albumin/Globulin Ratio (1.2-2.2) Lipase (73-393) U/L Urine Color [place] A (YELLOW) Urine Appearance Clear (CLEAR) Urine pH 6.0 (5.0-8.0) Ur Specific [place] >= 1.030 (1.008-1.030) Urine Protein Negative (NEGATIVE) mg/dL Urine Glucose (UA) Negative (NEGATIVE) mg/dL Urine Ketones 40 H (NEGATIVE) mg/dL Urine Occult Blood Negative (NEGATIVE) Urine Nitrite Negative (NEGATIVE) Urine Bilirubin Small H (NEGATIVE) Urine Urobilinogen 4.0 H (0.2-1.0) EU/dL Ur Leukocyte Esterase Negative (NEGATIVE) Urine RBC 0-5 (0-5) Urine WBC 0-5 (0-5) Ur Epithelial Cells Many Amorphous Sediment Few Urine Bacteria Not seen Urine Mucus Not seen Urine HCG, Qual Negative 05/26/20 05/26/20 05/26/20 Range/Units 18:55 18:55 18:55 WBC (4.5-11.0) K/uL RBC (3.30-5.50) M/uL Hgb (12.0-15.0) g/dL Hct (36.0-48.0) % MCV (80-98) fL MCH (27-31) pg MCHC (32-36) % Plt Count (150-400) K/uL Neut % (Auto) (36-66) % Lymph % (Auto) (24-44) % [place] % (Auto) (2-6) % Eos % (Auto) (2-4) % Baso % (Auto) (0-1) % Sodium 138 L (140-148) mmol/L Potassium 3.8 (3.6-5.2) mmol/L Chloride 103 (100-108) mmol/L Carbon Dioxide 24 (21-32) mmol/L Anion Gap 14.8 H (5.0-14.0) mmol/L BUN 5 L D (7-18) mg/dL Creatinine 0.6 (0.6-1.0) mg/dL Est Cr Clr Drug Dosing 125.43 mL/min Estimated GFR (MDRD) > 60 (>60) Glucose 87 (74-106) mg/dL Lactic Acid 0.6 (0.4-2.0) mmol/L Calcium 8.5 (8.5-10.1) mg/dL Total Bilirubin 1.0 D (0.2-1.0) mg/dL AST 45 H (15-37) U/L ALT 38 (12-78) U/L Alkaline Phosphatase 75 (46-116) U/L Total Protein 6.6 (6.4-8.2) g/dL Albumin 3.2 L (3.4-5.0) g/dL Globulin 3.4 (2.3-3.5) g/dL Albumin/Globulin Ratio 0.9 L (1.2-2.2) Lipase 76 (73-393) U/L Urine Color (YELLOW) Urine Appearance (CLEAR) Urine pH (5.0-8.0) Ur Specific [place] (1.008-1.030) Urine Protein (NEGATIVE) mg/dL Urine Glucose (UA) (NEGATIVE) mg/dL Urine Ketones (NEGATIVE) mg/dL Urine Occult Blood (NEGATIVE) Urine Nitrite (NEGATIVE) Urine Bilirubin (NEGATIVE) Urine Urobilinogen (0.2-1.0) EU/dL Ur Leukocyte Esterase (NEGATIVE) Urine RBC (0-5) Urine WBC (0-5) Ur Epithelial Cells Amorphous Sediment Urine Bacteria Urine Mucus Urine HCG, Qual Meds: Medications Generic Name Dose Route Start Last Admin Trade Name Freq PRN Reason Stop Dose Admin Diphenhydramine HCl 25 mg 05/26/20 20:22 Benadryl IVPUSH Q6H PRN Itching Diphenhydramine HCl 25 mg 05/26/20 20:22 Benadryl PO Q6H PRN Itching Fentanyl Citrate 10 mcg 05/26/20 20:30 Fentanyl In Ns 20 Mcg/Ml 30 Ml Adventure Challenge Instructor IV ASDIRECTED [facility] Protocol Sodium Chloride 80 mls @ 3 mls/sec 05/26/20 19:00 05/26/20 19:09 Normal Saline IV 3 mls/sec ASDIRECTED [place] Administration Lactated Ringer's 1,000 mls @ 125 mls/hr 05/26/20 20:30 Ringers, Lactated IV ASDIRECTED [place] Iopamidol 100 ml 05/26/20 19:00 05/26/20 19:09 Isovue-300 (61%) IV 100 ml . DIRECTED [place] Administration Naloxone HCl 0.04 mg 05/26/20 20:22 Narcan IVPUSH Q3M PRN Respiratory Depression Ondansetron HCl 4 mg 05/26/20 20:20 Zofran IV Q4H PRN Nausea/Vomiting Ondansetron HCl 4 mg 05/26/20 20:22 Zofran IVPUSH Q6H PRN Nausea/Vomiting Discontinued Medications Generic Name Dose Route Start Last Admin Trade Name Freq PRN Reason Stop Dose Admin Fentanyl 50 mcg 05/26/20 18:24 05/26/20 18:41 Sublimaze IM 05/26/20 18:25 50 mcg ONETIME ONE Administration Fentanyl 50 mcg 05/26/20 19:24 05/26/20 19:30 Sublimaze IVPUSH 05/26/20 19:25 50 mcg ONETIME ONE Administration Fentanyl 100 mcg 05/26/20 20:18 Sublimaze IVPUSH 05/26/20 20:19 ONETIME ONE Ondansetron HCl 4 mg 05/26/20 18:22 05/26/20 18:40 Zofran Odt PO 05/26/20 18:23 4 mg ONETIME ONE Administration Sepsis Event Note (ED) - Focused Exam Vital Signs: Vital Signs Temp Pulse Resp BP Pulse Ox 05/26/20 17:29 97.5 F 74 16 170/91 H 98 05/26/20 17:22 97.5 F 74 16 170/91 H 98 - My Orders Last 24 Hours: My Active Orders 05/26/20 Breakfast Nothing per Oral Now Diet [DIET] 05/26/20 19:00 Iopamidol [Isovue-300 (61%)] 100 ml IV . DIRECTED Sodium Chloride 0.9% [Normal Saline] 80 ml IV ASDIRECTED 05/26/20 20:20 Patient Status [ADT] Routine Height and Weight [RC] DAILY Oxygen Therapy [RC] PRN Up ad Holley [RC] ASDIRECTED VTE/DVT Education [RC] Per Unit Routine Vital Signs [RC] Q4H Ondansetron [Zofran] 4 mg IV Q4H PRN Resuscitation Status Routine 05/26/20 20:21 Intake and Output [RC] QSHIFT 05/26/20 20:22 Naloxone [Narcan] 0.04 mg IVPUSH Q3M PRN Ondansetron [Zofran] 4 mg IVPUSH Q6H PRN diphenhydrAMINE [Benadryl] 25 mg IVPUSH Q6H PRN diphenhydrAMINE [Benadryl] 25 mg PO Q6H PRN 05/26/20 20:23 Communication Order [RC] Per Unit Routine BIZTALK ADMINISTRATOR Record [RC] Q4H Vital Signs [RC] PER UNIT ROUTINE Pulse Oximetry Continuous Monitoring [OM.PC] Routine 05/26/20 20:30 Lactated Ringers [Ringers, Lactated] 1,000 ml IV ASDIRECTED fentaNYL/Normal Saline [fentaNYL in NS 20 MCG/ML 30 ML BIZTALK ADMINISTRATOR] 10 mcg IV ASDIRECTED - Assessment/Plan Last 24 Hours: My Active Orders 05/26/20 Breakfast Nothing per Oral Now Diet [DIET] 05/26/20 19:00 Iopamidol [Isovue-300 (61%)] 100 ml IV . DIRECTED Sodium Chloride 0.9% [Normal Saline] 80 ml IV ASDIRECTED 05/26/20 20:20 Patient Status [ADT] Routine Height and Weight [RC] DAILY Oxygen Therapy [RC] PRN Up ad Holley [RC] ASDIRECTED VTE/DVT Education [RC] Per Unit Routine Vital Signs [RC] Q4H Ondansetron [Zofran] 4 mg IV Q4H PRN Resuscitation Status Routine 05/26/20 20:21 Intake and Output [RC] QSHIFT 05/26/20 20:22 Naloxone [Narcan] 0.04 mg IVPUSH Q3M PRN Ondansetron [Zofran] 4 mg IVPUSH Q6H PRN diphenhydrAMINE [Benadryl] 25 mg IVPUSH Q6H PRN diphenhydrAMINE [Benadryl] 25 mg PO Q6H PRN 05/26/20 20:23 Communication Order [RC] Per Unit Routine BIZTALK ADMINISTRATOR Record [RC] Q4H Vital Signs [RC] PER UNIT ROUTINE Pulse Oximetry Continuous Monitoring [OM.PC] Routine 05/26/20 20:30 Lactated Ringers [Ringers, Lactated] 1,000 ml IV ASDIRECTED fentaNYL/Normal Saline [fentaNYL in NS 20 MCG/ML 30 ML BIZTALK ADMINISTRATOR] 10 mcg IV ASDIRECTED Plan: Assessment Acuity = acute Site and laterality = small bowel obstruction complicated patient known history of gastric bypass Etiology = unknown Manifestations = abdominal pain Location of injury = Home Lab values = CBC, CMP unremarkable urinalysis unremarkable CT scan does describe small bowel obstruction above Plan Call discussed case Dr. Benoit at 2014 he kindly agreed to admit the patient he will follow-up for possible surgical intervention tomorrow This note was dictated using [employer] voice recognition software please call with any questions on syntax or grammar.
--- NOTE | 2020-05-26 18:38 | EDM.PDOC ---
ED HPI GENERAL MEDICAL PROBLEM - General Chief Complaint: Abdominal Pain Stated Complaint: ABD PAIN Time Seen by Provider: 05/26/20 18:27 - History of Present Illness INITIAL COMMENTS - FREE TEXT/NARRATIVE: This record was entered in duplicate please disregard Upper Epigastric Pain Score (Numeric/FACES): 6 - Related Data Allergies Allergy/AdvReac Type Severity Reaction Status Date / Time hydromorphone Allergy Disorientat Verified 05/26/20 17:30 ion Home Meds: Home Meds Calcium Cit/Mgox/Vit D3/B6/Min [Calcium Citrate Plus Tablet] 500 mg PO BID 09/07/18 [History] Cholecalciferol (Vitamin D3) [Vitamin D3] 5,000 unit PO DAILY 09/07/18 [History] Creon [id number] 1 tab PO TID 09/07/18 [History] Cyanocobalamin (Vitamin B-12) [Vitamin B-12] 1,000 mcg SL DAILY 09/07/18 [History] Ferrous Fumarate/Vitamin C [Vitron-C] 1 tab PO DAILY 09/07/18 [History] Multivitamin-Min/Iron/FA/Vit K [Multi-Day Plus Minerals Tablet] 2 each PO BID 09/07/18 [History] Vitamin B Complex [B Complex] 1 each PO DAILY 09/07/18 [History] Zinc Gluconate [Zinc] 50 mg PO DAILY 09/07/18 [History] Lactobacillus Acidophilus [Acidophilus] 1 tab PO TID 09/10/18 [History] Thiamine HCl [Vitamin B-1] 100 mg PO DAILY 09/10/18 [History] Wheat Dextrin [Benefiber] 6 - 8 tsp PO DAILY 09/10/18 [History] Past Medical History HEENT History: Reports: Other (See Below) Other HEENT History: wears glasses Gastrointestinal History: Reports: Bowel Obstruction [employer] History: Reports: Musculoskeletal History: Reports: Back Pain, Chronic, Fracture, Other (See Below) Other Musculoskeletal History: fractured arm in elementary school Endocrine/Metabolic History: Reports: Other (See Below) Other Endocrine/Metabolic History: "I was on thryroid medicine yrs ago" Hematologic History: Reports: B12 Deficiency, Iron Deficiency - Infectious Disease History Infectious Disease History: Reports: Chicken Pox - Past Surgical History HEENT Surgical History: Reports: Other (See Below) Other HEENT Surgeries/Procedures: wisdom teeth removed GI Surgical History: Reports: Bariatric Procedure, Cholecystectomy, Hernia Repair/Other, Small Bowel Social & Family History - Tobacco Use Smoking Status *Q: Light Tobacco Smoker Years of Tobacco use: 26 Packs/Tins Daily: 0.5 - Caffeine Use Caffeine Use: Reports: None Other Caffeine Use: 3-4 cold coffee per week - Alcohol Use Days Per Week of Alcohol Use: 5 Number of Drinks Per Day: 4 Total Drinks Per Week: 20 - Recreational Drug Use Recreational Drug Use: No - Living Situation & Occupation Living situation: Reports: , with Family Occupation: Employed (lives with family in [facility]) ED ROS GENERAL - Review of Systems Review Of Systems: Unable To Obtain Reason Not Obtained: Duplicate record ED EXAM, GI/ABD - Physical Exam Exam: Not Obtained Course - Vital Signs Last Recorded V/S: Last Vital Signs Temp 97.5 F 05/26/20 17:29 Pulse 74 05/26/20 17:29 Resp 16 05/26/20 17:29 BP 170/91 H 05/26/20 17:29 Pulse Ox 98 05/26/20 17:29 - Orders/Labs/Meds Orders: Active Orders 24 hr Category Date Time Status Patient Status [ADT] Routine ADT 05/26/20 20:20 Active Communication Order [RC] Per Unit Routine Care 05/26/20 20:23 Active Height and Weight [RC] DAILY Care 05/26/20 20:20 Active Intake and Output [RC] QSHIFT Care 05/26/20 20:21 Active Oxygen Therapy [RC] PRN Care 05/26/20 20:20 Active TOUCH UP CARVER Record [RC] Q4H Care 05/26/20 20:23 Active Up ad Holley [RC] ASDIRECTED Care 05/26/20 20:20 Active VTE/DVT Education [RC] Per Unit Routine Care 05/26/20 20:20 Active Vital Signs [RC] PER UNIT ROUTINE Care 05/26/20 20:23 Active Vital Signs [RC] Q4H Care 05/26/20 20:20 Active Nothing per Oral Now Diet [DIET] Diet 05/26/20 Breakfast Active Iopamidol [Isovue-300 (61%)] Med 05/26/20 19:00 Active 100 ml IV . DIRECTED Lactated Ringers [Ringers, Lactated] 1,000 ml Med 05/26/20 20:30 Ordered IV ASDIRECTED Naloxone [Narcan] Med 05/26/20 20:22 Ordered 0.04 mg IVPUSH Q3M PRN Ondansetron [Zofran] Med 05/26/20 20:20 Ordered 4 mg IV Q4H PRN Ondansetron [Zofran] Med 05/26/20 20:22 Ordered 4 mg IVPUSH Q6H PRN Sodium Chloride 0.9% [Normal Saline] 80 ml Med 05/26/20 19:00 Active IV ASDIRECTED diphenhydrAMINE [Benadryl] Med 05/26/20 20:22 Ordered 25 mg IVPUSH Q6H PRN diphenhydrAMINE [Benadryl] Med 05/26/20 20:22 Ordered 25 mg PO Q6H PRN fentaNYL/Normal Saline [fentaNYL in NS 20 MCG/ML 30 ML Med 05/26/20 20:30 Ordered TOUCH UP CARVER] 10 mcg IV ASDIRECTED Pulse Oximetry Continuous Monitoring [OM.PC] Routine Oth 05/26/20 20:23 Ordered Resuscitation Status Routine Resus Stat 05/26/20 20:20 Ordered Medication Orders Diphenhydramine HCl (Benadryl) 25 mg IVPUSH Q6H PRN PRN Reason: Itching Diphenhydramine HCl (Benadryl) 25 mg PO Q6H PRN PRN Reason: Itching Fentanyl Citrate (Fentanyl In Ns 20 Mcg/Ml [address] Monkey) 10 mcg IV ASDIRECTED [place]; Protocol Sodium Chloride (Normal Saline) 80 mls @ 3 mls/sec IV ASDIRECTED [place] Last Admin: 05/26/20 19:09 Dose: 3 mls/sec Documented by: WILLIAM Lactated Ringer's (Ringers, Lactated) 1,000 mls @ 125 mls/hr IV ASDIRECTED [place] Iopamidol (Isovue-300 (61%)) 100 ml IV . DIRECTED [place] Last Admin: 05/26/20 19:09 Dose: 100 ml Documented by: WILLIAM Naloxone HCl (Narcan) 0.04 mg IVPUSH Q3M PRN PRN Reason: Respiratory Depression Ondansetron HCl (Zofran) 4 mg IV Q4H PRN PRN Reason: Nausea/Vomiting Ondansetron HCl (Zofran) 4 mg IVPUSH Q6H PRN PRN Reason: Nausea/Vomiting Labs: Laboratory Tests 05/26/20 05/26/20 05/26/20 Range/Units 18:38 18:42 18:55 WBC 5.8 (4.5-11.0) K/uL RBC 4.04 (3.30-5.50) M/uL Hgb 13.6 D (12.0-15.0) g/dL Hct 39.3 (36.0-48.0) % MCV 97 (80-98) fL MCH 34 H (27-31) pg MCHC 35 (32-36) % Plt Count 276 (150-400) K/uL Neut % (Auto) 65 (36-66) % Lymph % (Auto) 23 L (24-44) % Maries % (Auto) 10 H (2-6) % Eos % (Auto) 0 L (2-4) % Baso % (Auto) 1 (0-1) % Sodium (140-148) mmol/L Potassium (3.6-5.2) mmol/L Chloride (100-108) mmol/L Carbon Dioxide (21-32) mmol/L Anion Gap (5.0-14.0) mmol/L BUN (7-18) mg/dL Creatinine (0.6-1.0) mg/dL Est Cr Clr Drug Dosing mL/min Estimated GFR (MDRD) (>60) Glucose (74-106) mg/dL Lactic Acid (0.4-2.0) mmol/L Calcium (8.5-10.1) mg/dL Total Bilirubin (0.2-1.0) mg/dL AST (15-37) U/L ALT (12-78) U/L Alkaline Phosphatase (46-116) U/L Total Protein (6.4-8.2) g/dL Albumin (3.4-5.0) g/dL Globulin (2.3-3.5) g/dL Albumin/Globulin Ratio (1.2-2.2) Lipase (73-393) U/L Urine Color [place] A (YELLOW) Urine Appearance Clear (CLEAR) Urine pH 6.0 (5.0-8.0) Ur Specific [place] >= 1.030 (1.008-1.030) Urine Protein Negative (NEGATIVE) mg/dL Urine Glucose (UA) Negative (NEGATIVE) mg/dL Urine Ketones 40 H (NEGATIVE) mg/dL Urine Occult Blood Negative (NEGATIVE) Urine Nitrite Negative (NEGATIVE) Urine Bilirubin Small H (NEGATIVE) Urine Urobilinogen 4.0 H (0.2-1.0) EU/dL Ur Leukocyte Esterase Negative (NEGATIVE) Urine RBC 0-5 (0-5) Urine WBC 0-5 (0-5) Ur Epithelial Cells Many Amorphous Sediment Few Urine Bacteria Not seen Urine Mucus Not seen Urine HCG, Qual Negative 05/26/20 05/26/20 05/26/20 Range/Units 18:55 18:55 18:55 WBC (4.5-11.0) K/uL RBC (3.30-5.50) M/uL Hgb (12.0-15.0) g/dL Hct (36.0-48.0) % MCV (80-98) fL MCH (27-31) pg MCHC (32-36) % Plt Count (150-400) K/uL Neut % (Auto) (36-66) % Lymph % (Auto) (24-44) % Maries % (Auto) (2-6) % Eos % (Auto) (2-4) % Baso % (Auto) (0-1) % Sodium 138 L (140-148) mmol/L Potassium 3.8 (3.6-5.2) mmol/L Chloride 103 (100-108) mmol/L Carbon Dioxide 24 (21-32) mmol/L Anion Gap 14.8 H (5.0-14.0) mmol/L BUN 5 L D (7-18) mg/dL Creatinine 0.6 (0.6-1.0) mg/dL Est Cr Clr Drug Dosing 125.43 mL/min Estimated GFR (MDRD) > 60 (>60) Glucose 87 (74-106) mg/dL Lactic Acid 0.6 (0.4-2.0) mmol/L Calcium 8.5 (8.5-10.1) mg/dL Total Bilirubin 1.0 D (0.2-1.0) mg/dL AST 45 H (15-37) U/L ALT 38 (12-78) U/L Alkaline Phosphatase 75 (46-116) U/L Total Protein 6.6 (6.4-8.2) g/dL Albumin 3.2 L (3.4-5.0) g/dL Globulin 3.4 (2.3-3.5) g/dL Albumin/Globulin Ratio 0.9 L (1.2-2.2) Lipase 76 (73-393) U/L Urine Color (YELLOW) Urine Appearance (CLEAR) Urine pH (5.0-8.0) Ur Specific [place] (1.008-1.030) Urine Protein (NEGATIVE) mg/dL Urine Glucose (UA) (NEGATIVE) mg/dL Urine Ketones (NEGATIVE) mg/dL Urine Occult Blood (NEGATIVE) Urine Nitrite (NEGATIVE) Urine Bilirubin (NEGATIVE) Urine Urobilinogen (0.2-1.0) EU/dL Ur Leukocyte Esterase (NEGATIVE) Urine RBC (0-5) Urine WBC (0-5) Ur Epithelial Cells Amorphous Sediment Urine Bacteria Urine Mucus Urine HCG, Qual Meds: Medications Generic Name Dose Route Start Last Admin Trade Name Freq PRN Reason Stop Dose Admin Diphenhydramine HCl 25 mg 05/26/20 20:22 Benadryl IVPUSH Q6H PRN Itching Diphenhydramine HCl 25 mg 05/26/20 20:22 Benadryl PO Q6H PRN Itching Fentanyl Citrate 10 mcg 05/26/20 20:30 Fentanyl In Ns 20 Mcg/Ml [address] Monkey IV ASDIRECTED [facility] Protocol Sodium Chloride 80 mls @ 3 mls/sec 05/26/20 19:00 05/26/20 19:09 Normal Saline IV 3 mls/sec ASDIRECTED [place] Administration Lactated Ringer's 1,000 mls @ 125 mls/hr 05/26/20 20:30 Ringers, Lactated IV ASDIRECTED [place] Iopamidol 100 ml 05/26/20 19:00 05/26/20 19:09 Isovue-300 (61%) IV 100 ml . DIRECTED [place] Administration Naloxone HCl 0.04 mg 05/26/20 20:22 Narcan IVPUSH Q3M PRN Respiratory Depression Ondansetron HCl 4 mg 05/26/20 20:20 Zofran IV Q4H PRN Nausea/Vomiting Ondansetron HCl 4 mg 05/26/20 20:22 Zofran IVPUSH Q6H PRN Nausea/Vomiting Discontinued Medications Generic Name Dose Route Start Last Admin Trade Name Freq PRN Reason Stop Dose Admin Fentanyl 50 mcg 05/26/20 18:24 05/26/20 18:41 Sublimaze IM 05/26/20 18:25 50 mcg ONETIME ONE Administration Fentanyl 50 mcg 05/26/20 19:24 05/26/20 19:30 Sublimaze IVPUSH 05/26/20 19:25 50 mcg ONETIME ONE Administration Fentanyl 100 mcg 05/26/20 20:18 Sublimaze IVPUSH 05/26/20 20:19 ONETIME ONE Ondansetron HCl 4 mg 05/26/20 18:22 05/26/20 18:40 Zofran Odt PO 05/26/20 18:23 4 mg ONETIME ONE Administration Departure - Departure Time of Disposition: 20:26 Disposition: DC/Tfer to Other 70 Clinical Impression: Flank pain, Small bowel obstruction Abdominal pain Qualifiers: Abdominal location: generalized Qualified Code(s): R10.84 - Generalized abdominal pain - Discharge Information Referrals: PCP,None [Primary Care Provider] - Forms: ED Department Discharge Care Plan Goals: Call was placed to Dr Benoit regarding Ct scan results. Pt will be admitted and Dr Benoit will follow up on Monday in the afternoon. Sepsis Event Note (ED) - Evaluation Sepsis Screening Result: No Definite Risk - Focused Exam Vital Signs: Vital Signs Temp Pulse Resp BP Pulse Ox 05/26/20 17:29 97.5 F 74 16 170/91 H 98 05/26/20 17:22 97.5 F 74 16 170/91 H 98 - My Orders Last 24 Hours: My Active Orders 05/26/20 Breakfast Nothing per Oral Now Diet [DIET] 05/26/20 19:00 Iopamidol [Isovue-300 (61%)] 100 ml IV . DIRECTED Sodium Chloride 0.9% [Normal Saline] 80 ml IV ASDIRECTED 05/26/20 20:20 Patient Status [ADT] Routine Height and Weight [RC] DAILY Oxygen Therapy [RC] PRN Up ad Holley [RC] ASDIRECTED VTE/DVT Education [RC] Per Unit Routine Vital Signs [RC] Q4H Ondansetron [Zofran] 4 mg IV Q4H PRN Resuscitation Status Routine 05/26/20 20:21 Intake and Output [RC] QSHIFT 05/26/20 20:22 Naloxone [Narcan] 0.04 mg IVPUSH Q3M PRN Ondansetron [Zofran] 4 mg IVPUSH Q6H PRN diphenhydrAMINE [Benadryl] 25 mg IVPUSH Q6H PRN diphenhydrAMINE [Benadryl] 25 mg PO Q6H PRN 05/26/20 20:23 Communication Order [RC] Per Unit Routine TOUCH UP CARVER Record [RC] Q4H Vital Signs [RC] PER UNIT ROUTINE Pulse Oximetry Continuous Monitoring [OM.PC] Routine 05/26/20 20:30 Lactated Ringers [Ringers, Lactated] 1,000 ml IV ASDIRECTED fentaNYL/Normal Saline [fentaNYL in NS 20 MCG/ML 30 ML TOUCH UP CARVER] 10 mcg IV ASDIRECTED - Assessment/Plan Last 24 Hours: My Active Orders 05/26/20 Breakfast Nothing per Oral Now Diet [DIET] 05/26/20 19:00 Iopamidol [Isovue-300 (61%)] 100 ml IV . DIRECTED Sodium Chloride 0.9% [Normal Saline] 80 ml IV ASDIRECTED 05/26/20 20:20 Patient Status [ADT] Routine Height and Weight [RC] DAILY Oxygen Therapy [RC] PRN Up ad Holley [RC] ASDIRECTED VTE/DVT Education [RC] Per Unit Routine Vital Signs [RC] Q4H Ondansetron [Zofran] 4 mg IV Q4H PRN Resuscitation Status Routine 05/26/20 20:21 Intake and Output [RC] QSHIFT 05/26/20 20:22 Naloxone [Narcan] 0.04 mg IVPUSH Q3M PRN Ondansetron [Zofran] 4 mg IVPUSH Q6H PRN diphenhydrAMINE [Benadryl] 25 mg IVPUSH Q6H PRN diphenhydrAMINE [Benadryl] 25 mg PO Q6H PRN 05/26/20 20:23 Communication Order [RC] Per Unit Routine TOUCH UP CARVER Record [RC] Q4H Vital Signs [RC] PER UNIT ROUTINE Pulse Oximetry Continuous Monitoring [OM.PC] Routine 05/26/20 20:30 Lactated Ringers [Ringers, Lactated] 1,000 ml IV ASDIRECTED fentaNYL/Normal Saline [fentaNYL in NS 20 MCG/ML 30 ML TOUCH UP CARVER] 10 mcg IV ASDIRECTED
[2020-05-26] MEDS ORDERED: Iopamidol 612 MG/ML 100 ML Bottle IV SCH (19:00)
[2020-05-26] MEDS ORDERED: Sodium Chloride 0.9% 80 ML IV SCH (19:00)
[2020-05-26] MEDS ORDERED: fentaNYL 100 MCG/2 ML SDV IVPUSH ONE ×2 (19:24→20:18)
--- NOTE | 2020-05-26 20:10 | CRLCT ---
INDICATION: Left upper quadrant abdominal pain. History of Isaura-en-Y and multiple small bowel obstructions TECHNIQUE: CT abdomen and pelvis acquired with 100 cc Isovue-300 IV contrast. COMPARISON: May 16, 2018 FINDINGS: Lower chest: Unremarkable. Liver: Hepatic steatosis. Spleen: Unremarkable. Pancreas: Unremarkable. Gallbladder and bile ducts: S/p cholecystectomy. Adrenal glands: Unremarkable. Kidneys: Unremarkable. GI tract: Status post gastric bypass procedure. There are dilated loops of small bowel measuring up to 6 cm in diameter. There is a transition point in the left upper abdomen, best seen on image 27 series 3. There is a small bowel feces sign within the small bowel just proximal to the this site of obstruction. There may also be a 2nd point of obstruction within the mid abdomen, best seen on image 77 series 2. This is near an anastomotic suture line in the small bowel. No free air or pneumatosis. Small amount of simple free fluid in the pelvis. The appendix is not seen. Vascular structures: Unremarkable. Lymph nodes: Unremarkable. Miscellaneous: Status post for abdominal ventral herniorrhaphy with mesh placement. Left paraumbilical fat containing ventral hernia. Pelvic Organs: Unremarkable. Bones: Unremarkable for age. IMPRESSION: Small-bowel obstruction with possibly two separate sites of obstruction, as described above. Hepatic steatosis. Status post gastric bypass procedure and ventral herniorrhaphy with mesh placement. Left paraumbilical fat containing ventral hernia. Please note that all CT scans at this facility use dose modulation, iterative reconstruction, and/or weight-based dosing when appropriate to reduce radiation dose to as low as reasonably achievable. Dictated by Barbra Galarza MD @ May 26 2020 7:43PM Signed by Dr. Barbra Galarza @ May 26 2020 8:09PM
[2020-05-26] MEDS ORDERED: diphenhydrAMINE 25 MG Cap PO PRN (20:22)
[2020-05-26] MEDS ORDERED: diphenhydrAMINE 50 MG/ML SDV IVPUSH PRN (20:22)
[2020-05-26] MEDS ORDERED: Naloxone 0.4 MG/ML SDV IVPUSH PRN (20:22)
[2020-05-26] MEDS ORDERED: Ondansetron 4 MG/2 ML SDV IVPUSH PRN (20:22)
[2020-05-26] MEDS ORDERED: fentaNYL/Normal Saline 600 MCG/30 ML PCA Vial IV SCH (20:30)
[2020-05-26] MEDS: Lactated Ringers 1,000 ML IV SCH (20:54)
[2020-05-26] MEDS: fentaNYL 100 MCG/2 ML SDV IVPUSH PRN ×3 (21:16→23:20)
[2020-05-27] MEDS: fentaNYL 100 MCG/2 ML SDV IVPUSH PRN ×4 (00:59→05:03)
[2020-05-27] MEDS: Ondansetron 4 MG/2 ML SDV IV PRN ×2 (03:32→10:14)
[2020-05-27] MEDS: Lactated Ringers 1,000 ML IV SCH (05:05)
--- NOTE | 2020-05-27 08:19 | PCM.HP.2 ---
H&P History of Present Illness - General Date of Service: 05/27/20 Admit Problem/Dx: Admission Diagnosis/Problem Admission Diagnosis/Problem Small bowel obstruction Source of Information: Patient History Limitations: Reports: No Limitations - History of Present Illness Initial Comments - Free Text/Narative: Emma states that she ate her normal breakfast of 1/2 breakfast sandwich at 0730 and a 1/2 banana. She was setting up for a meeting and sat at the meeting from 9 - 12:30 and she developed worsening abdominal pain and bloating. After going home and resting for awhile the pain went away but came back about 2 hours later worse than the first episode. Krista called the clinic and was instructed to go to the ED. She was admitted last night. Eating ice chips, IV Fluids, resting and IV Fentanyl her pain is gone. States that she doesn't feel any pain, bloating or firmness in her abdomen. Last BM was yesterday between the 2 episodes of pain. Onset of Symptoms: Reports: Sudden (yesterday morning. ) Symptom Onset Date: 05/26/20 Symptom Onset Time: 09:00 Location: Reports: Abdomen Quality: Reports: Same as Previous Episode (when she had a bowel obstruction ) Severity: Severe Worsens with: Reports: None Associated Symptoms: Reports: Loss of Appetite, Other (nausea but no vomiting. ) Upper Epigastric Pain Score (Numeric/FACES): 0 - Related Data Allergies/Adverse Reactions: Allergies Allergy/AdvReac Type Severity Reaction Status Date / Time hydromorphone Allergy Disorientat Verified 05/26/20 17:30 ion Home Medications: Home Meds Calcium Cit/Mgox/Vit D3/B6/Min [Calcium Citrate Plus Tablet] 500 mg PO BID 09/07/18 [History] Cholecalciferol (Vitamin D3) [Vitamin D3] 5,000 unit PO DAILY 09/07/18 [History] Creon [id number] 1 tab PO TID 09/07/18 [History] Cyanocobalamin (Vitamin B-12) [Vitamin B-12] 1,000 mcg SL DAILY 09/07/18 [History] Ferrous Fumarate/Vitamin C [Vitron-C] 1 tab PO DAILY 09/07/18 [History] Multivitamin-Min/Iron/FA/Vit K [Multi-Day Plus Minerals Tablet] 2 each PO BID 09/07/18 [History] Vitamin B Complex [B Complex] 1 each PO DAILY 09/07/18 [History] Zinc Gluconate [Zinc] 50 mg PO DAILY 09/07/18 [History] Lactobacillus Acidophilus [Acidophilus] 1 tab PO TID 09/10/18 [History] Thiamine HCl [Vitamin B-1] 100 mg PO DAILY 09/10/18 [History] Wheat Dextrin [Benefiber] 6 - 8 tsp PO DAILY 09/10/18 [History] Past Medical History HEENT History: Reports: Other (See Below) Other HEENT History: wears glasses Gastrointestinal History: Reports: Bowel Obstruction 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: Musculoskeletal History: Reports: Back Pain, Chronic, Fracture, Other (See Below) Other Musculoskeletal History: fractured arm in elementary school Endocrine/Metabolic History: Reports: Other (See Below) Other Endocrine/Metabolic History: "I was on thryroid medicine yrs ago" Hematologic History: Reports: B12 Deficiency, Iron Deficiency - Infectious Disease History Infectious Disease History: Reports: Chicken Pox - Past Surgical History HEENT Surgical History: Reports: Other (See Below) Other HEENT Surgeries/Procedures: wisdom teeth removed GI Surgical History: Reports: Bariatric Procedure, Cholecystectomy, Hernia Repair/Other, Small Bowel Social & Family History - Tobacco Use Smoking Status *Q: Light Tobacco Smoker Years of Tobacco use: 26 Packs/Tins Daily: 0.5 Second Hand Smoke Exposure: Yes - Caffeine Use Caffeine Use: Reports: None Other Caffeine Use: 3-4 cold coffee per week - Alcohol Use Days Per Week of Alcohol Use: 5 Number of Drinks Per Day: 4 Total Drinks Per Week: 20 - Recreational Drug Use Recreational Drug Use: No - Living Situation & Occupation Living situation: Reports: , with Family Occupation: Employed (lives with family in [place], [place].) H&P Review of Systems - Review of Systems: Review Of Systems: See Below General: Reports: Fatigue, Decreased Appetite HEENT: Reports: No Symptoms Pulmonary: Reports: No Symptoms Cardiovascular: Reports: No Symptoms Gastrointestinal: Reports: Abdominal Pain, Distension, Nausea Genitourinary: Reports: No Symptoms Musculoskeletal: Reports: No Symptoms Skin: Reports: No Symptoms Psychiatric: Reports: No Symptoms Neurological: Reports: No Symptoms Hematologic/Lymphatic: Reports: No Symptoms Immunologic: Reports: No Symptoms Exam - Exam Exam: See Below - Vital Signs Vital Signs: Last Vital Signs Temp 99 F 05/27/20 07:18 Pulse 70 05/27/20 07:18 Resp 14 05/27/20 07:18 BP 140/61 05/27/20 07:18 Pulse Ox 96 05/27/20 07:18 Weight: 190 lb 6.4 oz - Exam Quality Assessment: DVT Prophylaxis General: Alert, Oriented, Cooperative HEENT: PERRLA, Conjunctiva Clear, Mucosa Moist & [place] Neck: Supple, Trachea Midline Lungs: Clear to Auscultation, Normal Respiratory Effort Cardiovascular: Regular Rate, Regular Rhythm GI/Abdominal Exam: Normal Bowel Sounds, Soft, Non-Tender (Female) Exam: Deferred Rectal (Female) Exam: Deferred Back Exam: Normal Inspection, Full Range of Motion Extremities: Normal Inspection, Normal Range of Motion, No Pedal Edema Skin: Warm, Dry, Intact Neurological: Cranial Nerves Intact, Reflexes Equal Bilateral Neuro Extensive - Mental Status: Alert, Oriented x3, Normal Mood/Affect, Memory Intact Neuro Extensive - Motor, Sensory, Reflexes: CN II-XII Intact, Normal Gait Psychiatric: Alert, Normal Affect, Normal Mood - Patient Data Lab Results Last 24 hrs: Laboratory Results - last 24 hr 05/26/20 05/26/20 05/26/20 Range/Units 18:38 18:42 18:55 WBC 5.8 (4.5-11.0) K/uL RBC 4.04 (3.30-5.50) M/uL Hgb 13.6 D (12.0-15.0) g/dL Hct 39.3 (36.0-48.0) % MCV 97 (80-98) fL MCH 34 H (27-31) pg MCHC 35 (32-36) % Plt Count 276 (150-400) K/uL Neut % (Auto) 65 (36-66) % Lymph % (Auto) 23 L (24-44) % [place] % (Auto) 10 H (2-6) % Eos % (Auto) 0 L (2-4) % Baso % (Auto) 1 (0-1) % Sodium (140-148) mmol/L Potassium (3.6-5.2) mmol/L Chloride (100-108) mmol/L Carbon Dioxide (21-32) mmol/L Anion Gap (5.0-14.0) mmol/L BUN (7-18) mg/dL Creatinine (0.6-1.0) mg/dL Est Cr Clr Drug Dosing mL/min Estimated GFR (MDRD) (>60) Glucose (74-106) mg/dL Lactic Acid (0.4-2.0) mmol/L Calcium (8.5-10.1) mg/dL Total Bilirubin (0.2-1.0) mg/dL AST (15-37) U/L ALT (12-78) U/L Alkaline Phosphatase (46-116) U/L Total Protein (6.4-8.2) g/dL Albumin (3.4-5.0) g/dL Globulin (2.3-3.5) g/dL Albumin/Globulin Ratio (1.2-2.2) Lipase (73-393) U/L Urine Color [place] A (YELLOW) Urine Appearance Clear (CLEAR) Urine pH 6.0 (5.0-8.0) Ur Specific [place] >= 1.030 (1.008-1.030) Urine Protein Negative (NEGATIVE) mg/dL Urine Glucose (UA) Negative (NEGATIVE) mg/dL Urine Ketones 40 H (NEGATIVE) mg/dL Urine Occult Blood Negative (NEGATIVE) Urine Nitrite Negative (NEGATIVE) Urine Bilirubin Small H (NEGATIVE) Urine Urobilinogen 4.0 H (0.2-1.0) EU/dL Ur Leukocyte Esterase Negative (NEGATIVE) Urine RBC 0-5 (0-5) Urine WBC 0-5 (0-5) Ur Epithelial Cells Many Amorphous Sediment Few Urine Bacteria Not seen Urine Mucus Not seen Urine HCG, Qual Negative 05/26/20 05/26/20 05/26/20 Range/Units 18:55 18:55 18:55 WBC (4.5-11.0) K/uL RBC (3.30-5.50) M/uL Hgb (12.0-15.0) g/dL Hct (36.0-48.0) % MCV (80-98) fL MCH (27-31) pg MCHC (32-36) % Plt Count (150-400) K/uL Neut % (Auto) (36-66) % Lymph % (Auto) (24-44) % [place] % (Auto) (2-6) % Eos % (Auto) (2-4) % Baso % (Auto) (0-1) % Sodium 138 L (140-148) mmol/L Potassium 3.8 (3.6-5.2) mmol/L Chloride 103 (100-108) mmol/L Carbon Dioxide 24 (21-32) mmol/L Anion Gap 14.8 H (5.0-14.0) mmol/L BUN 5 L D (7-18) mg/dL Creatinine 0.6 (0.6-1.0) mg/dL Est Cr Clr Drug Dosing 125.43 mL/min Estimated GFR (MDRD) > 60 (>60) Glucose 87 (74-106) mg/dL Lactic Acid 0.6 (0.4-2.0) mmol/L Calcium 8.5 (8.5-10.1) mg/dL Total Bilirubin 1.0 D (0.2-1.0) mg/dL AST 45 H (15-37) U/L ALT 38 (12-78) U/L Alkaline Phosphatase 75 (46-116) U/L Total Protein 6.6 (6.4-8.2) g/dL Albumin 3.2 L (3.4-5.0) g/dL Globulin 3.4 (2.3-3.5) g/dL Albumin/Globulin Ratio 0.9 L (1.2-2.2) Lipase 76 (73-393) U/L Urine Color (YELLOW) Urine Appearance (CLEAR) Urine pH (5.0-8.0) Ur Specific [place] (1.008-1.030) Urine Protein (NEGATIVE) mg/dL Urine Glucose (UA) (NEGATIVE) mg/dL Urine Ketones (NEGATIVE) mg/dL Urine Occult Blood (NEGATIVE) Urine Nitrite (NEGATIVE) Urine Bilirubin (NEGATIVE) Urine Urobilinogen (0.2-1.0) EU/dL Ur Leukocyte Esterase (NEGATIVE) Urine RBC (0-5) Urine WBC (0-5) Ur Epithelial Cells Amorphous Sediment Urine Bacteria Urine Mucus Urine HCG, Qual Result Diagrams: 05/26/20 18:55 05/26/20 18:55 Sepsis Event Note - Evaluation Sepsis Screening Result: No Definite Risk - Focused Exam Vital Signs: Vital Signs Temp Pulse Resp BP Pulse Ox 05/27/20 07:18 99 F 70 14 140/61 96 05/27/20 02:00 99 F 74 16 123/68 96 05/27/20 01:42 98 05/26/20 22:13 98.6 F 66 16 146/71 H 99 05/26/20 22:06 99 05/26/20 20:47 99.4 F 80 16 162/83 H 98 - Problem List (1) Partial small bowel obstruction SNOMED Code(s): 146381558 ICD Code: K56.600 - PARTIAL INTESTINAL OBSTRUCTION, UNSPECIFIED TO CAUSE Status: Acute Current Visit: Yes Problem List Initiated/Reviewed/Updated: Yes Orders Last 24hrs: Active Orders 24 hr Category Date Time Status Patient Status [ADT] Routine ADT 05/26/20 20:20 Active Communication Order [RC] Per Unit Routine Care 05/26/20 20:23 Active Height and Weight [RC] DAILY Care 05/26/20 20:20 Active Intake and Output [RC] QSHIFT Care 05/26/20 20:21 Active Oxygen Therapy [RC] PRN Care 05/26/20 20:20 Active FISH HATCHERY INSPECTOR Record [RC] Q4H Care 05/26/20 20:23 Active Up ad [place] [RC] ASDIRECTED Care 05/26/20 20:20 Active Vital Signs [RC] Q4H Care 05/26/20 20:20 Active Nothing per Oral Now Diet [DIET] Diet 05/26/20 Breakfast Active Abdomen 2V AP Flat Upright [CR] Stat Exams 05/27/20 06:40 Taken Abdomen 2V AP Flat Upright [CR] Timed Exams 05/28/20 04:00 Ordered Lactated Ringers [Ringers, Lactated] 1,000 ml Med 05/26/20 20:30 Active IV ASDIRECTED Naloxone [Narcan] Med 05/26/20 20:22 Active 0.04 mg IVPUSH Q3M PRN Ondansetron [Zofran] Med 05/26/20 20:20 Active 4 mg IV Q4H PRN diphenhydrAMINE [Benadryl] Med 05/26/20 20:22 Active 25 mg IVPUSH Q6H PRN diphenhydrAMINE [Benadryl] Med 05/26/20 20:22 Active 25 mg PO Q6H PRN fentaNYL [Sublimaze] Med 05/26/20 20:50 Active 50 mcg IVPUSH Q1H PRN fentaNYL/Normal Saline [fentaNYL in NS 20 MCG/ML 30 ML Med 05/26/20 20:30 Active FISH HATCHERY INSPECTOR] 0 mcg IV ASDIRECTED Pulse Oximetry Continuous Monitoring [OM.PC] Routine Oth 05/26/20 20:23 Ordered Resuscitation Status Routine Resus Stat 05/26/20 20:20 Ordered Medication Orders Diphenhydramine HCl (Benadryl) 25 mg IVPUSH Q6H PRN PRN Reason: Itching Diphenhydramine HCl (Benadryl) 25 mg PO Q6H PRN PRN Reason: Itching Fentanyl (Sublimaze) 50 mcg IVPUSH Q1H PRN PRN Reason: Pain (severe 7-10) Stop: 05/27/20 08:30 Last Admin: 05/27/20 05:03 Dose: 50 mcg Documented by: Admin: 05/27/20 03:33 Dose: 50 mcg Documented by: Admin: 05/27/20 02:08 Dose: 50 mcg Documented by: Admin: 05/27/20 00:59 Dose: 50 mcg Documented by: Admin: 05/26/20 23:20 Dose: 50 mcg Documented by: Admin: 05/26/20 22:12 Dose: 50 mcg Documented by: Admin: 05/26/20 21:16 Dose: 50 mcg Documented by: KENAN Fentanyl Citrate (Fentanyl In Ns 20 Mcg/Ml 30 Ml Timber Surveyor) 0 mcg IV ASDIRECTED [place]; Protocol Lactated Ringer's (Ringers, Lactated) 1,000 mls @ 125 mls/hr IV ASDIRECTED [place] Last Admin: 05/27/20 05:05 Dose: 125 mls/hr Documented by: Infusion: 05/27/20 04:54 Dose: 125 mls/hr Documented by: Admin: 05/26/20 20:54 Dose: 125 mls/hr Documented by: KENAN Naloxone HCl (Narcan) 0.04 mg IVPUSH Q3M PRN PRN Reason: Respiratory Depression Ondansetron HCl (Zofran) 4 mg IV Q4H PRN PRN Reason: Nausea/Vomiting Last Admin: 05/27/20 03:32 Dose: 4 mg Documented by: DEZ Assessment/Plan Comment:: Assessment: Partial Small bowel Obstruction SP RNY Gastric Bypass Surgery Malabsorption Vitamin B Deficiency Vitamin D Deficiency Plan: Admit as Inpatient Plan to be hospitalized 3 days and 4 nights. Sips of Clear Liquids/Ice Chips Check Ferritin level IV Fluids Check Abdominal Flat and Upright X Ray Stat and repeat in the AM. Elizabeth Wallis 05/27/2020
--- NOTE | 2020-05-27 09:21 | CR ---
Abdomen 2V AP Flat Upright CLINICAL HISTORY: SBO FINDINGS: Patient has had previous abdominal surgery and ventral hernia repair. Intestinal gas pattern is nonacute. There is some air filled bowel in the upper abdomen. IMPRESSION: Nonacute intestinal gas pattern
[2020-05-27] MEDS: Pantoprazole 40 MG Vial IVPUSH SCH (09:57)
[2020-05-27] MEDS ORDERED: MVI, Adult with Vitamin K 10 ML, Thiamine 200 MG, Chromium/Copper/Mang/Selen/Zn 1 ML in... IV ONE ×4 (10:00)
[2020-05-27] MEDS: Dextrose 5%-Lactated Ringers 1,000 ML IV SCH ×2 (13:29→23:19)
[2020-05-28] MEDS ORDERED: Dicyclomine 10 MG Cap PO PRN (07:51)
[2020-05-28] MEDS ORDERED: Docusate Sodium 100 MG Cap PO SCH (09:00)
--- NOTE | 2020-05-28 09:08 | CR ---
Abdomen 2V AP Flat Upright CLINICAL HISTORY: Partial small bowel obstruction FINDINGS: There is gas and feces throughout the colon. Small intestinal gas pattern is nonacute. No free air is identified. There is a hiatal hernia. Patient has had previous the abdominal surgery and ventral hernia repair. IMPRESSION: Nonacute intestinal gas pattern similar to prior study
[2020-05-28] MEDS: Pantoprazole 40 MG Vial IVPUSH SCH (10:15)
--- NOTE | 2020-05-28 10:32 | PCM.DCSUM1 ---
Discharge Summary - Discharge Data Discharge Date: 05/28/20 Discharge Disposition: Home, Self-Care 01 Condition: Stable - Referral to Home Health Primary Care Physician: PCP None - Discharge Diagnosis/Problem(s) (1) Partial small bowel obstruction SNOMED Code(s): 078515723 ICD Code: K56.600 - PARTIAL INTESTINAL OBSTRUCTION, UNSPECIFIED TO CAUSE Status: Acute Current Visit: Yes - Patient Summary/Data Consults: Consultations 05/28/20 07:57 Consult to Magnet Maker [CONS] Routine Comment: Physician Instructions: Quantity: Special Instructions: home with Step 2 w/o cereal for 2 weeks then low fiber/low residue forever needs teaching - Patient Instructions Diet: Drink 8-10+ Glasses/Day Diet, Other: Step 2 Gastric Bypass Diet for 2 weeks ( 06/12/2020) then low fiber/residue Activity: As Tolerated Showering/Bathing: May Shower Notify Provider of: Fever, Increased Pain, Swelling and Redness, Nausea and/or Vomiting Other/Special Instructions: Keep a food journal - Discharge Plan *PRESCRIPTION DRUG MONITORING PROGRAM REVIEWED*: Not Applicable *COPY OF PRESCRIPTION DRUG MONITORING REPORT IN PATIENT JOSE: Not Applicable Prescriptions/Med Rec: Dicyclomine [Bentyl] 10 mg PO QIDACANDBED PRN #30 cap PRN Reason: abdominal gas and bloating Docusate Sodium [Colace] 100 mg PO BID #60 cap Home Medications: Home Meds Calcium Cit/Mgox/Vit D3/B6/Min [Calcium Citrate Plus Tablet] 500 mg PO BID 09/07/18 [History] Cholecalciferol (Vitamin D3) [Vitamin D3] 5,000 unit PO DAILY 09/07/18 [History] Creon [id number] 1 tab PO TID 09/07/18 [History] Cyanocobalamin (Vitamin B-12) [Vitamin B-12] 1,000 mcg SL DAILY 09/07/18 [History] Ferrous Fumarate/Vitamin C [Vitron-C] 1 tab PO DAILY 09/07/18 [History] Multivitamin-Min/Iron/FA/Vit K [Multi-Day Plus Minerals Tablet] 2 each PO BID 09/07/18 [History] Vitamin B Complex [B Complex] 1 each PO DAILY 09/07/18 [History] Zinc Gluconate [Zinc] 50 mg PO DAILY 09/07/18 [History] Lactobacillus Acidophilus [Acidophilus] 1 tab PO TID 09/10/18 [History] Thiamine HCl [Vitamin B-1] 100 mg PO DAILY 09/10/18 [History] Dicyclomine [Bentyl] 10 mg PO QIDACANDBED PRN #30 cap 05/28/20 [Rx] Docusate Sodium [Colace] 100 mg PO BID #60 cap 05/28/20 [Rx] Patient Handouts: Docusate Sodium; Senna tablets or capsules, Bowel Obstruction, [id number] Referrals: Elizabeth Daugherty PA-C [Physician Director Investment Banking] - 06/09/20 (11:15 am) - Discharge Summary/Plan Comment DC Time >30 min.: Yes Discharge Summary/Plan Comment: Step 2 diet with no cereal for 2 weeks. Low fiber residue diet for alf Follow up as scheduled on 06/09/2020 Elizabeth Wallis 05/28/2020 - General Info Date of Service: 05/28/20 Functional Status: Reports: Pain Controlled, Tolerating Diet - Review of Systems General: Reports: No Symptoms HEENT: Reports: No Symptoms Pulmonary: Reports: No Symptoms Cardiovascular: Reports: No Symptoms Gastrointestinal: Reports: Abdominal Pain (subsided - BM today ) Genitourinary: Reports: No Symptoms Musculoskeletal: Reports: No Symptoms Skin: Reports: No Symptoms Neurological: Reports: No Symptoms Psychiatric: Reports: No Symptoms - Patient Data Vitals - Most Recent: Last Vital Signs Temp 97.9 F 05/28/20 07:12 Pulse 63 05/28/20 07:12 Resp 16 05/28/20 07:12 BP 142/81 H 05/28/20 07:12 Pulse Ox 98 05/28/20 07:21 Weight - Most Recent: 196 lb 9.6 oz I&O - Last 24 hours: Intake & Output 05/27/20 05/28/20 05/28/20 22:59 06:59 14:59 Intake Total 365 400 120 Output Total 700 1250 300 Balance -335 -850 -180 Lab Results - Last 24 hrs: Laboratory Results - last 24 hr 05/28/20 05/28/20 Range/Units 04:08 04:08 WBC 4.6 (4.5-11.0) K/uL RBC 3.70 (3.30-5.50) M/uL Hgb 11.9 L (12.0-15.0) g/dL Hct 36.6 (36.0-48.0) % MCV 99 H (80-98) fL MCH 32 H (27-31) pg MCHC 33 (32-36) % Plt Count 238 (150-400) K/uL Sodium 139 L (140-148) mmol/L Potassium 3.4 L (3.6-5.2) mmol/L Chloride 104 (100-108) mmol/L Carbon Dioxide 28 (21-32) mmol/L Anion Gap 10.4 (5.0-14.0) mmol/L BUN 2 L D (7-18) mg/dL Creatinine 0.6 (0.6-1.0) mg/dL Est Cr Clr Drug Dosing 125.44 mL/min Estimated GFR (MDRD) > 60 (>60) Glucose 110 H (74-106) mg/dL Calcium 8.0 L (8.5-10.1) mg/dL Phosphorus 2.9 (2.5-4.9) mg/dL Magnesium 1.6 L (1.8-2.4) mg/dL Ferritin 228 (8-388) ng/ml Total Bilirubin 0.9 (0.2-1.0) mg/dL AST 77 H (15-37) U/L ALT 44 (12-78) U/L Alkaline Phosphatase 71 (46-116) U/L Total Protein 5.5 L (6.4-8.2) g/dL Albumin 2.5 L (3.4-5.0) g/dL Globulin 3.0 (2.3-3.5) g/dL Albumin/Globulin Ratio 0.8 L (1.2-2.2) Med Orders - Current: Current Medications Dicyclomine HCl (Bentyl) 10 mg PO QIDACANDBED PRN PRN Reason: abdominal gas and bloating Diphenhydramine HCl (Benadryl) 25 mg IVPUSH Q6H PRN PRN Reason: Itching Diphenhydramine HCl (Benadryl) 25 mg PO Q6H PRN PRN Reason: Itching Docusate Sodium (Colace) 100 mg PO BID [place] Fentanyl Citrate (Fentanyl In Ns 20 Mcg/Ml 30 Ml Counseling Services Director) 0 mcg IV ASDIRECTED [place]; Protocol Last Admin: 05/27/20 11:26 Dose: 600 mcg Documented by: Dextrose/Lactated Ringer's (Dextrose 5%-Lactated Ringers) 1,000 mls @ 100 mls/[facility] Last Admin: 05/27/20 23:19 Dose: 100 mls/hr Documented by: Naloxone HCl (Narcan) 0.04 mg IVPUSH Q3M PRN PRN Reason: Respiratory Depression Ondansetron HCl (Zofran) 4 mg IV Q4H PRN PRN Reason: Nausea/Vomiting Last Admin: 05/27/20 10:14 Dose: 4 mg Documented by: Pantoprazole Sodium (Protonix Iv) 40 mg IVPUSH DAILY [facility] Last Admin: 05/27/20 09:57 Dose: 40 mg Documented by: Discontinued Medications Fentanyl (Sublimaze) 50 mcg IM ONETIME ONE Stop: 05/26/20 18:25 Last Admin: 05/26/20 18:41 Dose: 50 mcg Documented by: Fentanyl (Sublimaze) 50 mcg IVPUSH ONETIME ONE Stop: 05/26/20 19:25 Last Admin: 05/26/20 19:30 Dose: 50 mcg Documented by: Fentanyl (Sublimaze) 100 mcg IVPUSH ONETIME ONE Stop: 05/26/20 20:19 Last Admin: 05/26/20 20:32 Dose: 100 mcg Documented by: Fentanyl (Sublimaze) 50 mcg IVPUSH Q1H PRN PRN Reason: Pain (severe 7-10) Stop: 05/27/20 08:30 Last Admin: 05/27/20 05:03 Dose: 50 mcg Documented by: Sodium Chloride (Normal Saline) 80 mls @ 3 [facility] Last Admin: 05/26/20 19:09 Dose: 3 mls/sec Documented by: Lactated Ringer's (Ringers, Lactated) 1,000 mls @ 125 mls/hr [facility] Last Admin: 05/27/20 05:05 Dose: 125 mls/hr Documented by: Multivitamins/Minerals 10 ml/Thiamine HCl 200 mg/ Chromium/Copper/Manganese/Seleni/Zn 1 ml/ Lactated Ringer's 1,013 mls @ 500 mls/hr IV ONETIME ONE Stop: 05/27/20 12:01 Last Admin: 05/27/20 11:19 Dose: 500 mls/hr Documented by: Iopamidol (Isovue-300 (61%)) 100 ml IV . DIRECTED [place] Last Admin: 05/26/20 19:09 Dose: 100 ml Documented by: Ondansetron HCl (Zofran Odt) 4 mg PO ONETIME ONE Stop: 05/26/20 18:23 Last Admin: 05/26/20 18:40 Dose: 4 mg Documented by: Ondansetron HCl (Zofran) 4 mg IVPUSH Q6H PRN PRN Reason: Nausea/Vomiting - Exam General: Reports: Alert, Oriented HEENT: Reports: Pupils Equal, Pupils Reactive Neck: Reports: Supple Lungs: Reports: Clear to Auscultation, Normal Respiratory Effort Cardiovascular: Reports: Regular Rate, Regular Rhythm GI/Abdominal Exam: Normal Bowel Sounds, Soft, Non-Tender (Female) Exam: Deferred Rectal (Female) Exam: Deferred Back Exam: Reports: Normal Inspection, Full Range of Motion Extremities: Normal Inspection, Normal Range of Motion Skin: Reports: Warm, Dry, Intact Psy/Mental Status: Reports: Alert, Normal Affect, Normal Mood
--- NOTE | 2020-05-28 11:10 | PN ---
DATE OF SERVICE: 05/28/2020 SUBJECTIVE: Emma is feeling better. Abdominal pain has stopped. She would like to be discharged to home. Her abdominal flat and upright x-ray showed improvement. She did have 1 bowel movement. Oral intake on ice chips and sips of clear liquid was 400. Urine output was 2450. REVIEW OF SYSTEMS: Remainder of review of systems negative for any pertinent positives and negatives. OBJECTIVE: GENERAL: Emma Love is a pleasant 40-year-old female. She is alert and orientated. VITAL SIGNS: TPR 97.9; 63; 16; blood pressure 142/81. HEENT: Negative. NECK: Supple. HEART: Regular rate and rhythm. LUNGS: Clear. ABDOMEN: Negative for any tenderness. There is no bloating. EXTREMITIES: Without peripheral edema. NEUROLOGIC: Intact. PSYCHIATRIC: Mood and affect appropriate. ASSESSMENT: Partial small bowel obstruction, status post Isaura-en-Y gastric bypass surgery, unspecified surgical malabsorption. PLAN: 1. Step 1 gastric bypass diet for breakfast. 2. Step 2 gastric bypass diet with no cereal for lunch. If tolerating diet well, may be discharged to home. 3. New prescriptions will be given of Colace 100 mg b.i.d., Bentyl 10 mg q.i.d. and p.r.n. for abdominal gas and bloating. 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 To be notified how the patient is doing after lunch and we will discharge her at that time. Elizabeth Daugherty PA-C /[id number]
== END 2020-05-28 14:00 | disposition home or self-care (01) ==
LOC: JP.ED 16:57 → JP.MS 20:20
PROVIDERS: ADMIT Surgery; ATTEND Surgery
DX: K56.600 Partial intestinal obstruction, unspecified as to cause (principal); F17.210 Nicotine dependence, cigarettes, uncomplicated; K90.9 Intestinal malabsorption, unspecified; E53.9 Vitamin B deficiency, unspecified; E55.9 Vitamin D deficiency, unspecified; Z88.5 Allergy status to narcotic agent; Z98.84 Bariatric surgery status
CPT/HCPCS: 36415; 74019; 74177; 80053; 81001; 81025; 82728; 83605; 83690; 83735; 84100; 85025; 85027; 94762; 96361; 96365; 96366; 96372; 96375; 96376; 99285; A9270; C9113; G0378; J2405; J3010; J3411; J7050; J7120; J7121; Q9967; 96374

== ENCOUNTER 2021-10-24 15:59 | Inpatient (IN) | payer OTHER ==
[2021-10-24] MEDS ORDERED: Sodium Chloride 0.9% 10 ML Syringe FLUSH PRN (16:25)
[2021-10-24] MEDS ORDERED: Ondansetron 4 MG/2 ML SDV IVPUSH ONE (16:27)
[2021-10-24] MEDS ORDERED: fentaNYL 100 MCG/2 ML SDV IVPUSH ONE ×2 (16:27→17:08)
[2021-10-24] MEDS ORDERED: Lactated Ringers 1,000 ML IV SCH (16:30)
[2021-10-24] MEDS ORDERED: Iopamidol 612 MG/ML 100 ML Bottle IV PRN (16:44)
[2021-10-24] MEDS ORDERED: Sodium Chloride 0.9% 100 ML IV SCH (16:45)
[2021-10-24 17:24] LABS: CORONAVIRUS COVID-19 NAA NEGATIVE (NEGATIVE)
[2021-10-24] MEDS ORDERED: HYDROmorphone 1 MG/ML Syringe IVPUSH ONE (17:33)
[2021-10-24] MEDS ORDERED: HYDROmorphone 0.5 MG/0.5 ML Syringe IVPUSH ONE ×2 (18:17→19:07)
[2021-10-24] MEDS ORDERED: Ondansetron 4 MG/2 ML SDV IVPUSH PRN (20:00)
[2021-10-24] MEDS ORDERED: Magnesium Hydroxide 400 MG/5 ML Susp 30 ML Cup PO PRN (20:00)
[2021-10-24] MEDS ORDERED: Acetaminophen 325 MG Tab PO PRN (20:00)
[2021-10-24] MEDS ORDERED: Dextrose 5%-Lactated Ringers 1,000 ML IV SCH (20:00)
[2021-10-24] MEDS ORDERED: diphenhydrAMINE 50 MG/ML SDV IVPUSH PRN (20:00)
[2021-10-24] MEDS ORDERED: Melatonin 3 MG Tab PO PRN (20:00)
[2021-10-24] MEDS ORDERED: diphenhydrAMINE 25 MG Cap PO PRN (20:00)
[2021-10-24] MEDS ORDERED: Ondansetron 4 MG Tab.DIS PO PRN (20:00)
[2021-10-24] MEDS ORDERED: LORazepam 2 MG/ML SDV IVPUSH PRN ×2 (20:00)
[2021-10-24] MEDS ORDERED: Naloxone 0.4 MG/ML SDV IVPUSH PRN (20:00)
[2021-10-24] MEDS: HYDROmorphone/Normal Saline 6 MG/30 ML PCA Vial IV PRN (20:33)
[2021-10-24] MEDS: Pantoprazole 40 MG Vial IV SCH (20:38)
[2021-10-25] MEDS: Ondansetron 4 MG/2 ML SDV IV PRN (02:41)
[2021-10-25] MEDS: HYDROmorphone/Normal Saline 6 MG/30 ML PCA Vial IV PRN ×2 (04:28→14:33)
[2021-10-25] MEDS: Magnesium Sulfate/Water 2 GM in Premix Bag 1 BAG IV SCH ×2 (09:49→16:04)
[2021-10-25] MEDS ORDERED: Ibuprofen 600 MG Tab PO PRN (18:53)
[2021-10-25] MEDS: Dextrose 5%-Lactated Ringers 1,000 ML IV SCH (19:26)
[2021-10-25] MEDS: Pantoprazole 40 MG Vial IV SCH (19:27)
[2021-10-26] MEDS: Dextrose 5%-Lactated Ringers 1,000 ML IV SCH (05:34)
[2021-10-26] MEDS ORDERED: Potassium Chloride 20 MEQ in Premix Bag 1 BAG IV ONE (06:38)
[2021-10-26] MEDS ORDERED: Ketamine 500 MG/5 ML MDV IV SCH ×3 (07:30→11:00)
[2021-10-26] MEDS ORDERED: Lidocaine 1% with EPINEPHrine 1:100,000 50 ML MDV ONE (07:42)
[2021-10-26] MEDS ORDERED: Meropenem 500 MG SDV ONE ×2 (07:42→12:13)
[2021-10-26] MEDS ORDERED: Bupivacaine 0.5% 50 ML MDV ONE (07:42)
[2021-10-26] MEDS ORDERED: Potassium Chloride 20 MEQ, Lidocaine 1% 2 ML in Sodium Chloride 0.9% 100 ML IV ONE (07:45)
[2021-10-26] MEDS ORDERED: fentaNYL 250 MCG/5 ML SDV ONE (08:04)
[2021-10-26] MEDS ORDERED: Neostigmine Methylsulfate 1 MG/ML 5 ML Syringe ONE (08:05)
[2021-10-26] MEDS ORDERED: Propofol 200 MG/20 ML SDV ONE (08:05)
[2021-10-26] MEDS ORDERED: Glycopyrrolate 0.2 MG/ML 5 ML MDV ONE (08:05)
[2021-10-26] MEDS ORDERED: Succinylcholine 200 MG/10 ML MDV ONE (08:05)
[2021-10-26] MEDS ORDERED: Dexamethasone 4 MG/ML SDV ONE (08:05)
[2021-10-26] MEDS ORDERED: Ondansetron 4 MG/2 ML SDV ONE (08:05)
[2021-10-26] MEDS ORDERED: Rocuronium 50 MG/5 ML Vial ONE ×2 (08:05→12:15)
[2021-10-26] MEDS: Ondansetron 4 MG/2 ML SDV IV PRN (10:39)
[2021-10-26] MEDS ORDERED: cefOXitin 2 GM in Sodium Chloride 0.9% 50 ML IV ONE (11:00)
[2021-10-26] MEDS ORDERED: Ketamine 19 MG in Sodium Chloride 0.9% 19.81 ML IV SCH (11:00)
[2021-10-26] MEDS ORDERED: Ropivacaine 40 ML, dexAMETHasone 8 MG, EPINEPHrine 0.4 MG, Sodium Chloride 0.9% 37.6 ML NERVRT SCH ×4 (11:00)
[2021-10-26] MEDS ORDERED: Labetalol 20 MG/4 ML Syringe ONE (12:34)
[2021-10-26] MEDS ORDERED: Ondansetron 4 MG/2 ML SDV IVPUSH PRN ×2 (13:36→15:00)
[2021-10-26] MEDS ORDERED: diphenhydrAMINE 25 MG Cap PO PRN (13:36)
[2021-10-26] MEDS ORDERED: Naloxone 0.4 MG/ML SDV IVPUSH PRN (13:36)
[2021-10-26] MEDS ORDERED: diphenhydrAMINE 50 MG/ML SDV IVPUSH PRN ×2 (13:36→15:00)
[2021-10-26] MEDS: HYDROmorphone/Normal Saline 6 MG/30 ML PCA Vial IV PRN (13:50)
[2021-10-26] MEDS ORDERED: fentaNYL 100 MCG/2 ML SDV IVPUSH ONE (13:53)
[2021-10-26] MEDS ORDERED: hydrOXYzine HCL 100 MG/2 ML SDV IM ONE (13:53)
[2021-10-26] MEDS ORDERED: Cyclobenzaprine 10 MG Tab PO PRN (14:02)
[2021-10-26] MEDS ORDERED: Lidocaine 1% with EPINEPHrine 1:100,000 50 ML MDV INJECT ONE (14:27)
[2021-10-26] MEDS ORDERED: Labetalol 20 MG/4 ML Syringe IVPUSH PRN (15:00)
[2021-10-26] MEDS ORDERED: hydrOXYzine HCL 100 MG/2 ML SDV IM PRN (15:00)
[2021-10-26] MEDS ORDERED: Metoclopramide 10 MG/2 ML SDV IVPUSH PRN (15:00)
[2021-10-26] MEDS ORDERED: Pantoprazole 40 MG Vial IVPUSH SCH (15:00)
[2021-10-26] MEDS ORDERED: Acetaminophen 500 MG Tab PO PRN (15:00)
[2021-10-26] MEDS: Acetaminophen 500 MG Tab PO SCH ×2 (15:56→22:47)
[2021-10-26] MEDS ORDERED: MVI, Adult with Vitamin K 10 ML, Thiamine 200 MG, Zinc/Copper/Manganese/Selenium 1 ML i... IV SCH ×4 (16:00)
[2021-10-26] MEDS: cefOXitin 2 GM in Sodium Chloride 0.9% 50 ML IV SCH (17:27)
[2021-10-26] MEDS: Pantoprazole 40 MG Vial IV SCH (19:48)
[2021-10-27] MEDS: Dextrose 5%-Lactated Ringers 1,000 ML IV SCH ×2 (00:13→07:02)
[2021-10-27] MEDS: cefOXitin 2 GM in Sodium Chloride 0.9% 50 ML IV SCH ×5 (00:16→23:06)
[2021-10-27] MEDS: HYDROmorphone/Normal Saline 6 MG/30 ML PCA Vial IV PRN ×2 (01:46→17:42)
[2021-10-27] MEDS ORDERED: Iopamidol 612 MG/ML 50 ML SDV PO STA (03:37)
[2021-10-27] MEDS: Acetaminophen 500 MG Tab PO SCH ×3 (07:22→23:05)
[2021-10-27] MEDS ORDERED: Dextrose 5%-Lactated Ringers 1,000 ML IV SCH (07:45)
[2021-10-27] MEDS: Heparin Sodium 5,000 Units/ML Vial SUBCUT SCH ×2 (08:35→20:34)
[2021-10-27] MEDS: Celecoxib 200 MG Cap PO SCH ×2 (08:42→20:34)
[2021-10-27] MEDS: Docusate Sodium 100 MG Cap PO SCH ×2 (08:42→20:34)
[2021-10-27] MEDS: Bisacodyl 5 MG Tab PO SCH ×2 (08:42→20:34)
[2021-10-27] MEDS ORDERED: SCOPOLAMINE PATCH CHECK TOP SCH (09:00)
[2021-10-27] MEDS ORDERED: MVI, Adult with Vitamin K 10 ML, Thiamine 200 MG, Zinc/Copper/Manganese/Selenium 1 ML i... IV SCH ×4 (16:00)
[2021-10-27] MEDS ORDERED: Pantoprazole 40 MG Delayed-Release Granules 1 Packet PO SCH (16:30)
[2021-10-28] MEDS: cefOXitin 2 GM in Sodium Chloride 0.9% 50 ML IV SCH (05:30)
[2021-10-28] MEDS: Acetaminophen 500 MG Tab PO SCH (07:43)
[2021-10-28] MEDS ORDERED: oxyCODONE 5 MG Tab PO PRN (07:50)
[2021-10-28] MEDS ORDERED: Cyanocobalamin (Vitamin B12) 1,000 MCG/ML SDV IM ONE (09:00)
[2021-10-28] MEDS: Docusate Sodium 100 MG Cap PO SCH (09:18)
[2021-10-28] MEDS: Bisacodyl 5 MG Tab PO SCH (09:18)
[2021-10-28] MEDS: Celecoxib 200 MG Cap PO SCH (09:18)
[2021-10-28] MEDS: Heparin Sodium 5,000 Units/ML Vial SUBCUT SCH (09:19)
== END 2021-10-28 13:48 | disposition home or self-care (01) | DRG 326 ==
LOC: JP.ED 15:59 → JP.2SS 19:07 → OBSVTOIN 10-26 13:35
PROVIDERS: ADMIT Internal Medicine; ATTEND Hospitalist
PROC: 0DS80ZZ Reposition Small Intestine, Open Approach (ICD-10-PCS; principal; 2021-10-26)
PROC: 0D160ZA Bypass Stomach to Jejunum, Open Approach (ICD-10-PCS; 2021-10-26)
PROC: 0DB80ZZ Excision of Small Intestine, Open Approach (ICD-10-PCS; 2021-10-26)
PROC: 0DQ80ZZ Repair Small Intestine, Open Approach (ICD-10-PCS; 2021-10-26)
PROC: 0D980ZZ Drainage of Small Intestine, Open Approach (ICD-10-PCS; 2021-10-26)
PROC: 0WQF0ZZ Repair Abdominal Wall, Open Approach (ICD-10-PCS; 2021-10-26)
PROC: 3E0M05Z Introduction of Adhesion Barrier into Peritoneal Cavity, Open Approach (ICD-10-PCS; 2021-10-26)
DX: K95.89 Other complications of other bariatric procedure (principal); K56.2 Volvulus; K63.89 Other specified diseases of intestine; K43.2 Incisional hernia without obstruction or gangrene; H54.7 Unspecified visual loss; G89.29 Other chronic pain; M54.9 Dorsalgia, unspecified; E53.8 Deficiency of other specified B group vitamins; Z86.19 Personal history of other infectious and parasitic diseases; Z90.49 Acquired absence of other specified parts of digestive tract; Z79.899 Other long term (current) drug therapy; Z98.84 Bariatric surgery status; F17.210 Nicotine dependence, cigarettes, uncomplicated; Z88.5 Allergy status to narcotic agent; Z20.822 Contact with and (suspected) exposure to COVID-19
CPT/HCPCS: 0241U; 36415; 74019; 74019-26; 74021; 74021-26; 74177; 74240; 74240-26; 80048; 80053; 81001; 82607; 82728; 83605; 83690; 83735; 84100; 84484; 85025; 85027; 88307; 96365; 96366; 96374; 96375; 96376; 99283; 99285-25; A9270-GY; C9113; G0378; J0171; J0330; J0694; J1100; J1170; J1644; J2020; J2185; J2405; J2704; J2710; J2795; J3010; J3410; J3411; J3420; J3475; J3480; J3490; J7120; J7121; Q0162; Q9967